=== PATIENT | female | born 1940 | race Caucasian/White ===

== ENCOUNTER 2022-11-20 08:08 | Observation (INO) ==
--- NOTE | 2022-10-09 14:24 | PAT Medication Instructions ---
Medication Instructions Date of Service October 09, 2022 Home Medications Medication Instructions Recorded aspirin 81 mg chewable tablet 81 mg PO DAILY #30 tabs 09/21/21 nitroglycerin 0.4 mg sublingual 0.4 mg sublingual Q5M PRN chest 09/21/21 tablet pain #20 tabs amlodipine 5 mg tablet 5 mg PO DAILY #30 tabs 12/13/21 isosorbide mononitrate 120 mg 120 mg PO DAILY #90 tabs 07/17/22 tablet,extended release 24 hr rosuvastatin 20 mg tablet 20 mg PO HS #90 tabs 09/11/22 Medication List: famotidine 40 mg tablet 40 mg PO BID aspirin 81 mg chewable tablet 81 mg PO DAILY nitroglycerin 0.4 mg sublingual tablet 0.4 mg sublingual Q5M PRN chest pain lorazepam 0.5 mg tablet 0.5 mg PO .COMPLEX PRN Anxiety furosemide 20 mg tablet (Lasix) 60 mg PO DAILY losartan 100 mg tablet 50 mg PO DAILY amlodipine 5 mg tablet 5 mg PO DAILY isosorbide mononitrate 120 mg tablet,extended release 24 hr 120 mg PO DAILY rosuvastatin 20 mg tablet 20 mg PO HS hydroxyzine HCl 25 mg tablet 30 mg PO HS PRN ANXIETY MEDICATION INSTRUCTIONS: Continue as directed nitroglycerin 0.4 mg sublingual tablet 0.4 mg sublingual Q5M PRN chest pain (p nicholas let anesthesia know if taken within 48hours prior to surgery) ASK your prescriber and surgeon aspirin 81 mg chewable tablet 81 mg PO DAILY DO NOT take the morning of surgery furosemide 20 mg tablet (Lasix) 60 mg PO DAILY losartan 100 mg tablet 50 mg PO DAILY Take morning of surgery With a small sip of water, OTHERWISE NOTHING TO EAT OR DRINK AFTER MIDNIGHT: lorazepam 0.5 mg tablet 0.5 mg PO .COMPLEX PRN Anxiety (if needed) famotidine 40 mg tablet 40 mg PO BID amlodipine 5 mg tablet 5 mg PO DAILY isosorbide mononitrate 120 mg tablet,extended release 24 hr 120 mg PO DAILY Take evening before surgery lorazepam 0.5 mg tablet 0.5 mg PO .COMPLEX PRN Anxiety (if needed) famotidine 40 mg tablet 40 mg PO BID rosuvastatin 20 mg tablet 20 mg PO HS hydroxyzine HCl 25 mg tablet 30 mg PO HS PRN ANXIETY (if needed) Other Notes If you have any questions please call us at [phone] or [phone] or [phone] or [phone]
--- NOTE | 2022-10-11 10:34 | History & Physical Report ---
Date of Service October 11, 2022 date of surgery: 10/31/22 procedure: Right Total Knee Arthroplasty Surgeon: Misha Theodore Assessment & Plan (1) Arthritis of right knee: Plan: Risk and benefits of the procedure were discussed, she is elected to proceed to right total knee replacement. Plan to be overnight stay with discharge home on aspirin 81 mg twice a day for 1 month postop DVT prophylaxis. She will need cardiac clearance prior to her upcoming surgery The risks and benefits have been discussed including, but not limited to, risk of infection, nerve injury, stiffness, loss of motion, failure to improve, etc. Reasonable outcomes and options of treatment were discussed. An explanation of appropriate alternatives to the procedure that may be advantageous were discussed and their risks and benefits, as well as the risks and benefits of not proceeding with treatment. I offered to answer any additional inquiries concerning the treatment involved. All the patient's questions were answered. The patient is agreeable, understanding of the treatment plan and alternatives, and wishes to proceed with the treatment plan. History of Present Illness Chief Complaint: Right knee pain Primary Care Provider: Wilbert Price Kiki Evans is a 81-year-old female who presented for preop evaluation prior to her upcoming right total knee replacement. She has longstanding history of right knee pain for several years denies any specific injuries or trauma. She was seen evaluated by Dr. Theodore underwent previous viscosupplementation as well as corticosteroid injection without any relief. After discussing further care she has elected to proceed with a right total knee replacement Allergies Allergy/AdvReac Type Severity Reaction Status Date / Time No Known Allergies Allergy Verified 10/09/22 13:16 Home Medications Medication Instructions Recorded Confirmed Type famotidine 40 mg tablet 40 mg PO BID 11/19/20 10/09/22 History aspirin 81 mg chewable tablet 81 mg PO DAILY #30 tabs 09/21/21 10/09/22 Rx nitroglycerin 0.4 mg sublingual 0.4 mg sublingual Q5M PRN chest 09/21/21 10/09/22 Rx tablet pain #20 tabs lorazepam 0.5 mg tablet 0.5 mg PO .COMPLEX PRN Anxiety 10/13/21 10/09/22 History furosemide 20 mg tablet (Lasix) 60 mg PO DAILY 11/16/21 10/09/22 History losartan 100 mg tablet 50 mg PO DAILY 11/16/21 10/09/22 History amlodipine 5 mg tablet 5 mg PO DAILY #30 tabs 12/13/21 10/09/22 Rx isosorbide mononitrate 120 mg 120 mg PO DAILY #90 tabs 07/17/22 10/09/22 Rx tablet,extended release 24 hr rosuvastatin 20 mg tablet 20 mg PO HS #90 tabs 09/11/22 10/09/22 Rx hydroxyzine HCl 25 mg tablet 30 mg PO HS PRN ANXIETY 10/09/22 10/09/22 History Past Med/Surg History Medical History Anxiety Aortic stenosis CAD (coronary artery disease) follows w/ Dr Theodore last visit 05/2022 Chronic heart failure with preserved ejection fraction Dyspnea on exertion GERD (gastroesophageal reflux disease) Hyperlipidemia Hypertension Surgical History History of cholecystectomy Hx of cardiac catheterization 09/2021 -[facility], no stents Hx of section Family History Other Family history non-contributory Social History Smoking Status: Never smoker Second Hand Exposure: No; Do You Dip or Chew Tobacco: No; Tobacco Cessation Education Requested by Patient: No Hx Alcohol Use: No Hx Substance Use: No Preferred Language: Swedish Communication Ability: Effective Kiln Hand Required: No Beliefs That Will Affect Care: None marital status: Current Living Situation: Spouse and Family Other Information That Helps Us Care for You: No Feels Safe at Home: Yes Safety Concerns: Feels Safe At This Time Assistive Devices: Denture - Upper, Glasses, Hearing Aid - Bilateral and Walker Review of Systems Review of Systems: All systems reviewed & are unremarkable except as noted in HPI & below Constitutional: no fever, no chills and no sweats Respiratory: no cough and no dyspnea Cardiovascular: no chest pain, no dyspnea and no orthopnea Gastrointestinal: no abdominal pain, no nausea and no vomiting Musculoskeletal: as per Subjective / HPI Physical Exam Physical Exam: HT: 5ft 2in WT: 79.38kg Constitutional: WD/WN, vitals as above no acute distress Respiratory: normal respiratory effort, lungs clear to auscultation no respiratory distress, no labored breathing and does not use accessory muscles Cardiovascular: RRR, no murmur, no edema Gastrointestinal (Abdomen): normal bowel sounds, soft, nontender, no hepatosplenomegaly Musculoskeletal: Knee: + knee abnormal to inspection (RIGHT KNEE: ), + effusion (+1 effusion), + limited ROM of knee (ROM 0/3/110), + knee ROM with crepitation, + joint line tenderness (medial joint line) and + Annmarie's sign positive; no deformity, no skin erythema, no ecchymosis, no valgus laxity, no varus laxity, anterior drawer test negative, Rocco's sign negative and pivot shift test negative Results & Data Results & Data Diagnostic Findings Right Knee X-ray: Right knee series showing advanced degenerative changes to the right knee, narrowing of the medial compartment and patello-femoral joint with patellar spurring noted, findings showing joint space narrowing of the medial compartment and patello-femoral joint, osteophyte formation and subchondral sclerosis noted. overall varus alignment. no acute bony pathology noted.
--- NOTE | 2022-10-18 08:40 | Anesthesiology Consultation ---
Date of Service October 18, 2022 Assessment & Plan (1) Encounter for pre-operative examination: - COVID screening: Per assessment on 10/18: No known COVID-19 positive contacts or current COVID-19 related symptoms. Travel screen negative. At surgeon discretion if preop Covid testing being done. - Outpatient joint assessment: Pt currently scheduled for inpatient pathway. If surgeon requests review for outpatient joint pathway, patient is not recommended candidate for outpatient joint program from anesthesia standpoint. - Patient acceptable risk for surgery pending surgeon-ordered cardiology preop evaluation ([facility] cardiology, appt 10/24). Chart Review Chart Review: Patient seen in Pre Admission Testing Teaching & Discussion Pre-Anesthesia Teaching/Discussion Notes: Instructed NPO after midnight before surgery,except medications with 15 cc of water. Medication instructions provided according to the PAT guidelines. History Surgery Operation Date: 10/31/22 07:55 Proposed Procedures p Right Total Knee Arthroplasty - Misha Theodore DO Height/Weight Height: 5 ft 2 in Weight: 81 kg Allergies Allergy/AdvReac Type Severity Reaction Status Date / Time No Known Allergies Allergy Verified 10/09/22 13:16 Medications Home Medications Medication Instructions Recorded Confirmed Last Taken famotidine 40 mg tablet 40 mg PO BID 11/19/20 10/09/22 10/04/21 aspirin 81 mg chewable tablet 81 mg PO DAILY #30 tabs 09/21/21 10/09/22 10/05/21 nitroglycerin 0.4 mg sublingual 0.4 mg sublingual Q5M PRN chest 09/21/21 10/09/22 Unknown tablet pain #20 tabs lorazepam 0.5 mg tablet 0.5 mg PO .COMPLEX PRN Anxiety 10/13/21 10/09/22 Unknown furosemide 20 mg tablet (Lasix) 60 mg PO DAILY 11/16/21 10/09/22 Unknown losartan 100 mg tablet 50 mg PO DAILY 11/16/21 10/09/22 Unknown amlodipine 5 mg tablet 5 mg PO DAILY #30 tabs 12/13/21 10/09/22 Unknown isosorbide mononitrate 120 mg 120 mg PO DAILY #90 tabs 07/17/22 10/09/22 Unknown tablet,extended release 24 hr rosuvastatin 20 mg tablet 20 mg PO HS #90 tabs 09/11/22 10/09/22 Unknown hydroxyzine HCl 25 mg tablet 30 mg PO HS PRN ANXIETY 10/09/22 10/09/22 Unknown Past Medical History Medical History Anxiety Aortic stenosis Echo 09/2022: Mild aortic stenosis (ANNABEL 1.9-2.0cm2, MG 15.3mmhg) CAD (coronary artery disease) Follows with [facility] Chronic heart failure with preserved ejection fraction GERD (gastroesophageal reflux disease) Hyperlipidemia Hypertension Obesity Pulmonary hypertension Echo 09/2022: "Mild" pulmonary HTN. RVSP 41mmhg. Exercise / Class Metabolic Activity III < 4 Walking/Shop/Light housework (uses walker) Past Family History Family History Other Family history non-contributory Past Surgical History Surgical History History of cholecystectomy Hx of cardiac catheterization 09/2021- [facility], no stents Hx of section Past Anesthesia History No Hx of Anesthesia Complications and No Family Hx of Anesthesia Complications History of PONV No Hx of PONV and No Hx of Motion Sickness Social History Smoking Status: Never smoker Do You Dip or Chew Tobacco: No Hx Alcohol Use: No Hx Substance Use: No substance use type: does not use Review of Systems Patient denies chest pain, shortness of breath, fever, chills, cough, wheezing, palpitations. Physical Exam Vital Signs VITALS BP 137/72 P 69 TEMP 98.1 SP02 95%RA RESP 16 PHYSICAL Full cervical extension range of motion. Full TMJ range of motion. TMD 3 finger breaths Mallampati Score 3 Dentition: upper partial, poor dentition Lungs: clear throughout to auscultation Cardiac: regular rate and rhythm, no murmurs noted Spine: normal Carotid arteries: negative bruit Extremities: no LE edema Lab Results Anesthesia Preop Results Results Anesthesia Widget: PT 10.9 Seconds (9.0-12.0) 10/18/22 PTT 23.3 Seconds (21.0-31.0) 10/18/22 INR 1.0 (0.9-1.1) 10/18/22 HA1c 6.1 % (4.5-5.6) H 10/18/22 Urine Color Yellow 10/18/22 Urine Appearance Clear (Clear) 10/18/22 Urine pH 6.5 (4.5-7.5) 10/18/22 Urine Specific Bolton 1.006 (1.000-1.030) 10/18/22 Urine Protein Negative (Negative) 10/18/22 Urine Glucose (UA) Negative (Negative) 10/18/22 Urine Ketones Negative (Negative) 10/18/22 Urine Blood Negative (Negative) 10/18/22 Urine Nitrite Negative (Negative) 10/18/22 Urine Bilirubin Negative (Negative) 10/18/22 Urine Urobilinogen Negative (Negative) 10/18/22 Urine Leukocyte Esterase Trace (Negative) H 10/18/22 Urine WBC (Auto) 0 /hpf (0-5) 10/18/22 Urine RBC (Auto) 0-4 /hpf (0-4) 10/18/22 Urine Hyaline Casts (Auto) 0 /lpf (0-5) 10/18/22 Urine Epithelial Cells (Auto) 0-5 /lpf (0-5) 10/18/22 Urine Bacteria (Auto) Negative (Negative) 10/18/22 Blood Type A Positive 10/18/22 Antibody Screen NEGATIVE 10/18/22 Testing Laboratory Results 10/05/22 WBC 4.9 H/H 12.0/35.5 PLATELETS 233 SODIUM 134 POTASSIUM 4.0 CHLORIDE 97 CO2 27 BUN 33 CREATININE 1.1 GLUCOSE 112 TSH 1.64 Electrocardiogram Date: 10/18/22 NSR at 65bpm. LAD. Chest X-Ray Date: 10/18/22 FINDINGS: PA and lateral chest radiographs are compared to study dated 01/18/2021. The heart is enlarged noting atherosclerotic calcification of the thoracic aorta. The pulmonary vasculature is noncongested. Calcified mediastinal lymph nodes are similar to previous. Chronic interstitial thickening is unchanged. There is mild bibasilar scarring/atelectasis. The lungs and pleural spaces are otherwise clear. There is no pneumothorax. The skeletal structures are osteopenic. The bony thorax appears intact. Cholecystectomy clips are noted in the right upper quadrant. IMPRESSION: Cardiomegaly with no active disease in the chest. Echocardiogram Date: 10/05/22 EF 60-65%. No RWMA. Mild cLVH. Moderate LAD. Mild RAD. Mild aortic stenosis (ANNABEL 1.9-2.0cm2, MG 15.3mmhg). Moderate mitral annular calcification. Mild pulmonary HTN. RVSP 41mmhg. No significant change compared to prior to study 07/24/18 per report. Stress Test Date: 09/06/21 1. Scintigraphic evidence of stress-induced myocardial ischemia involving the anterior and anterolateral hutson. 2. No exercise-induced chest pain. 3. No EKG changes. 4. Normal left ventricular systolic function without wall motion abnormality. Left ventricular ejection fraction is 68%. *Subsequent 09/2021 cardiac cath performed* Cardiac Catheterization Date: 10/05/21 Coronary angiography: 1. Left main: Distal left main 20%. 2. Left anterior descending: Proximal LAD luminal irregularities. Mid LAD 30%. Small to medium caliber D1 with proximal 60 to 70% stenosis and LUZ MARIA-3 flow. 3. Circumflex: Large caliber circumflex and OM1. Mid to distal circumflex continues in the AV groove as a small to medium caliber vessel. Ostial circumflex 10 to 20%. Large OM1 proximal 20% and mid 20 to 30% stenosis. Otherwise luminal irregularities. 4. Right coronary artery: RCA is large and dominant. Proximal RCA 20%. Mid RCA diffuse 10 to 20%. Proximal PDA 50%. PL branches without significant CAD. Left heart authorization: 1. Left ventriculography was not performed. 2. Mild aortic stenosis. There was a 15-20 mmHg peak to peak gradient across the aortic valve noted on catheter pullback. 3. Mildly elevated LVEDP; 17 mmHg. Impression: Moderate to severe CAD involving small to medium caliber D1. Otherwise mild and moderate nonobstructive CAD. Mild aortic stenosis. Mildly elevated LVEDP. Hypertension. Plan: Given poorly controlled blood pressure and small to medium caliber branch vessel CAD as the most severe CAD, recommend adjusting medical therapy. If continues to have symptoms that could be attributed to ischemic heart disease despite medical therapy, could review images with interventional cardiology to discuss possible options. She has already noted some benefit with nitrate therapy. Risk factor modification. Continue diuretic. COVID-19 Risk Screen Screening Information COVID-19 Screen Date: 10/18/22 Exposure 21 Days Family/Household +COVID Last 21 Days: No Exposure 10 Days Any COVID Exposure Last 10 Days: No Symptoms Last 10 Days Experienced COVID Sx Last 10 Days: No + COVID 0-90 Days COVID + in Last 0-90 Days: No
--- NOTE | 2022-11-16 09:55 | History & Physical Report ---
Date of Service November 16, 2022 date of surgery: 11/20/22 Procedure: Right Total Knee Arthroplasty Surgeon: Misha Theodore Assessment & Plan (1) Arthritis of right knee: Plan: Risk and benefits of the procedure were discussed, she is elected to proceed to right total knee replacement. Plan to be overnight stay with discharge home on aspirin 81 mg twice a day for 1 month postop DVT prophylaxis. She will need cardiac clearance prior to her upcoming surgery The risks and benefits have been discussed including, but not limited to, risk of infection, nerve injury, stiffness, loss of motion, failure to improve, etc. Reasonable outcomes and options of treatment were discussed. An explanation of appropriate alternatives to the procedure that may be advantageous were discussed and their risks and benefits, as well as the risks and benefits of not proceeding with treatment. I offered to answer any additional inquiries concerning the treatment involved. All the patient's questions were answered. The patient is agreeable, understanding of the treatment plan and alternatives, and wishes to proceed with the treatment plan. History of Present Illness Chief Complaint: right knee pain Primary Care Provider: Wilbert Price Kiki Evans is a 81-year-old female who presented for preop evaluation prior to her upcoming right total knee replacement. She has longstanding history of right knee pain for several years denies any specific injuries or trauma. She was seen evaluated by Dr. Theodore underwent previous viscosupplementation as well as corticosteroid injection without any relief. After discussing further care she has elected to proceed with a right total knee replacement Allergies Allergy/AdvReac Type Severity Reaction Status Date / Time No Known Allergies Allergy Verified 10/24/22 10:23 Home Medications Medication Instructions Recorded Confirmed Type famotidine 40 mg tablet 40 mg PO BID 11/19/20 10/24/22 History aspirin 81 mg chewable tablet 81 mg PO DAILY #30 tabs 09/21/21 10/24/22 Rx nitroglycerin 0.4 mg sublingual 0.4 mg sublingual Q5M PRN chest 09/21/21 10/24/22 Rx tablet pain #20 tabs lorazepam 0.5 mg tablet 0.5 mg PO .COMPLEX PRN Anxiety 10/13/21 10/24/22 History furosemide 20 mg tablet (Lasix) 60 mg PO DAILY 11/16/21 10/24/22 History amlodipine 5 mg tablet 5 mg PO DAILY #30 tabs 12/13/21 10/24/22 Rx isosorbide mononitrate 120 mg 120 mg PO DAILY #90 tabs 07/17/22 10/24/22 Rx tablet,extended release 24 hr rosuvastatin 20 mg tablet 20 mg PO HS #90 tabs 09/11/22 10/24/22 Rx omeprazole 40 mg capsule,delayed 40 mg PO DAILY 10/24/22 10/24/22 History release Past Med/Surg History Medical History Anxiety Aortic stenosis Echo 09/2022: Mild aortic stenosis (ANNABEL 1.9-2.0cm2, MG 15.3mmhg) CAD (coronary artery disease) Follows with [facility] Chronic heart failure with preserved ejection fraction GERD (gastroesophageal reflux disease) Hyperlipidemia Hypertension Obesity Pulmonary hypertension Echo 09/2022: "Mild" pulmonary HTN. RVSP 41mmhg. 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: No Beliefs That Will Affect Care: None marital status: Current Living Situation: Spouse and Family Other Information That Helps Us Care for You: No Feels Safe at Home: Yes Safety Concerns: Feels Safe At This Time Assistive Devices: Denture - Upper, Glasses, Hearing Aid - Bilateral and Walker Review of Systems Constitutional: no fever, no chills and no sweats Respiratory: no cough and no dyspnea Cardiovascular: no chest pain, no dyspnea and no orthopnea Gastrointestinal: no abdominal pain, no nausea and no vomiting Musculoskeletal: as per Subjective / HPI Physical Exam Physical Exam: HT: 5ft 2in WT: 79.38kg Constitutional: WD/WN, vitals as above no acute distress Respiratory: normal respiratory effort, lungs clear to auscultation no respiratory distress, no labored breathing and does not use accessory muscles Cardiovascular: RRR, no murmur, no edema Gastrointestinal (Abdomen): normal bowel sounds, soft, nontender, no hepatosplenomegaly Musculoskeletal: Knee: + knee abnormal to inspection (RIGHT KNEE: ), + effusion (+1 effusion), + limited ROM of knee (ROM 0/3/110), + knee ROM with crepitation, + joint line tenderness (medial joint line) and + Annmarie's sign positive; no deformity, no skin erythema, no ecchymosis, no valgus laxity, no varus laxity, anterior drawer test negative, Rocco's sign negative and pivot shift test negative Results & Data Results & Data Diagnostic Findings Right Knee X-ray: Right knee series showing advanced degenerative changes to the right knee, narrowing of the medial compartment and patello-femoral joint with patellar spurring noted, findings showing joint space narrowing of the medial compartment and patello-femoral joint, osteophyte formation and subchondral sclerosis noted. overall varus alignment. no acute bony pathology noted.
[~2022-11-20 08:08] MED LIST: ACETAMINOPHEN 500 MG TAB PO SCH; ATROPINE SULFATE 0.1 MG/ML 10ML SYR IV PRN; BUPIVACAINE 0.25% PF 30 ML VIAL ONE; BUPIVACAINE 0.5 % 5 MG/1 ML PF 10ML VIAL ONE; CeleBREX 200 MG CAP PO SCH; FAMOTIDINE 20 MG TAB PO SCH; GABAPENTIN 300 MG CAP PO SCH; LR 500ML BOLUS, THEN 15ML/HR IV SCH; LR 60ML/HR IV SCH; METOCLOPRAMIDE HCL 10 MG TABLET PO SCH; ONDANSETRON INJ 2 MG/ML 2 ML VIAL IV PRN; ROPIVACAINE 0.5% HCL/PF 150 MG, BUPIVACAINE 0.75% MPF 20 ML, EPINEPHrine 30MG/30ML (OR ... INSTIL SCH; TRANEXAMIC ACID 1,000 MG **IV Intra-op IV SCH; TRANEXAMIC ACID 1,000 MG **IV Pre-op IV SCH; ceFAZolin 2000MG 2,000 MG/15 ML SYR IV SCH; dexAMETHasone 4 MG TAB PO SCH; ePHEDrine sulfate 50 MG/ML AMP IV PRN; fentaNYL citrate PF 100 MCG/2 ML VIAL IV PRN
--- NOTE | 2022-11-20 08:49 | History & Physical Bridge Note ---
Date of Service November 20, 2022 History & Physical Bridge Note I have examined the patient, reviewed the History & Physical and in the interval since the performance of the History & Physical I have noted the following changes of clinical significance: no changes noted
[2022-11-20] MEDS ORDERED: TRANEXAMIC ACID / 0.7% NACL 1,000 MG/100 ML BAG IV ONE ×2 (08:59)
[2022-11-20] MEDS ORDERED: PROPOFOL IV EMULSION 10 MG/ML 20 ML VIAL IV ONE (09:04)
[2022-11-20] MEDS ORDERED: fentaNYL citrate PF 100 MCG/2 ML VIAL ONE ×2 (09:04→11:17)
[2022-11-20] MEDS ORDERED: LIDOCAINE 2% 2 ML VIAL/AMP(20MG/ML) INFIL ONE (09:04)
[2022-11-20] MEDS ORDERED: ORTHO JOINT ANESTHETIC ONE (10:21)
[2022-11-20] MEDS ORDERED: LABETALOL HCL IV 5 MG/ML 20ML IV PRN (11:25)
[2022-11-20] MEDS ORDERED: ePHEDrine sulfate 50 MG/ML AMP ONE (11:34)
[2022-11-20] MEDS ORDERED: WATER, STERILE FOR INJ 10 ML VIAL ONE (11:34)
[2022-11-20] MEDS ORDERED: LABETALOL HCL IV 5 MG/ML 20ML IV ONE (11:36)
--- NOTE | 2022-11-20 12:16 | Operative Report ---
Post Operative Report Pre & Post Diagnosis Operation Date: 11/20/22 10:10 Pre-Op Diagnosis: Arthritis of right knee Post-Op Diagnosis: Arthritis of right knee I identified the patient and participated in the time-out.: Yes Procedure Operation Date: 11/20/22 10:10 Actual Procedures p Right Total Knee ArthroplastyUtilizing Gu[employer]ro & Nephew journey 2 and en bloc total knee arthroplasty size 4 femur 3 tibia 9 polytwenty 32 patella - Misha Theodore DO Surgeon Misha Theodore DO Print Controller Los LOYA Estimated Blood Loss 5 Findings Consistent with Post-Op Diagnosis Patient presents with severe end-stage tricompartmental DJD eburnated [id number] marginal osteophytes subchondral sclerosis and marginal line and cystic osteophytes Specimens Bone and cartilage Drains Medium bore Hemovac Anesthesia Type MAC Spinal Regional Complications none Disposition Accompanied Patient To Recovery: No Disposition: Recovery Room Indications Patient presents for right total knee arthroplasty after failed attempts at conservative management putting physical therapy anti-inflammatories relative rest activity modification corticosteroid injection and viscosupplementation Description of Procedure After proper prepping and draping of the Right lower extremity anterior midline incision was made over the region of the extensor extensor mechanism after meticulous hemostasis was obtained and maintained in subcutaneous tissues a medial parapatellar incision was made The patella was subluxed lateralward the medial lateral gutter were cleaned from any hypertrophic synovitis and scar tissue of the distal femoral block was placed and the distal femoral osteotomy cut was made subsequently the chamfers anterior and posterior osteotomy cuts were made utilizing the 4-in-1 block the tibia was subsequently subluxed anteriorward medial and ateral meniscal remnants were excised in their entirety remnants of the anterior and posterior cruciate ligaments were excised in their entirety excellent exposure of the proximal tibia was obtained the tibial osteotomy guide was placed on the proximal tibial osteotomy cut was made once again the knee was irrigated with copious amounts of sterile saline solution the patella was subsequently everted lateralward thickened scar tissue around the patella was removed the patella was subsequently cut utilizing a freehand technique and was drilled prepared for final preparation and placement of patella socially flexion-extension gaps were checked and the equal and symmetric trials were placed to the appropriate femoral and tibial trials with poly-spacer being placed for equal flexion and extension gaps and full range of motion including extension to 0 and flexion to 140 the trial components after having been taken to recovery range of motion was subsequently removed meticulous hemostasis was obtained and maintained subsequently a knee block injection of joint cocktail including ropivacaine 0.5% 150 mg. Bupivacaine 0.5% epinephrine 1-200,030 mL's toradol 30 mg dexamethasone 4 mg ketamine 10 mg clonidine 100 micrograms normal saline solution 30 mg was infiltrated into the soft tissues of the posterior knee medial lateral gutters and periosteal synovium special attention was paid to protect neurovascular structures at all times subsequently trial components having been removed the knee was irrigated with sterile saline solution. debris was removed the proximal tibia was subsequently prepared and was made ready for the placement of the tibial component tibial component was also cemented and tamped into position the femoral component was subsequently placed and cemented in the position the patellar component was subsequently cemented in position because hemostasis once again obtained and maintained wound having been thoroughly irrigated with debridement and debridement lavage was performed as well as a medial parapatellar incision closed with #1 Vicryl in interrupted fashion subcutaneous was closed with #2 Vicryl skin was closed with skin clips. PA-C was necessary for prepping and drapping as well as wound closure of deep fascia Sub cutaneous tissue and skin and was necessary for the case. A sterile compressive dressing was placed patient was taken to recovery in stable condition of report dictated by Arben I attest to the content of the Intraoperative Record and any orders documented therein. Any exceptions are noted below.Due to the complex nature of the procedure, the entire surgery was performed with the operational assistance of Los LYONS. The pediatric assistant, under direct supervision, was involved in the actual performance of all aspects of the surgical procedure including hemostasis, tissue retraction and incision, instrument management, patient positioning, and wound closure. I attest to the content of the Intraoperative Record and any orders documented therein. Any exceptions are noted below.
[2022-11-20] MEDS ORDERED: METOCLOPRAMIDE HCL INJ 5 MG/ML 2 ML VIAL IV PRN (14:15)
[2022-11-20] MEDS ORDERED: NITROGLYCERIN SL 0.4 MG/TAB TAB SL PRN (14:15)
[2022-11-20] MEDS ORDERED: LORazepam 0.5 MG TAB PO PRN (14:15)
[2022-11-20] MEDS ORDERED: diphenhydrAMINE Capsule 25 MG CAP PO PRN (14:15)
[2022-11-20] MEDS ORDERED: oxyCODONE HCL IR 5 MG TAB (IMMEDIATE RELEASE) PO PRN (14:15)
[2022-11-20] MEDS ORDERED: HYDROmorphone INJ 1 MG/ML SYRINGE IV PRN (14:15)
[2022-11-20] MEDS ORDERED: ONDANSETRON INJ 2 MG/ML 2 ML VIAL IV PRN (14:15)
[2022-11-20] MEDS ORDERED: MAGNESIUM HYDROXIDE SUSP 30 ML UDC PO PRN (14:15)
[2022-11-20] MEDS ORDERED: bisacodyL 10 MG SUPP PR PRN (14:15)
[2022-11-20] MEDS ORDERED: NALOXONE HCL 0.4 MG/1 ML VIAL/CARP IV PRN (14:15)
[2022-11-20] MEDS ORDERED: SODIUM CHLORIDE 0.9% 1000ML 1,000 ML IV SCH (14:15)
[2022-11-20] MEDS: KETOROLAC TROMETHAMINE 15 MG/ML VIAL IV SCH ×2 (14:56→19:22)
[2022-11-20] MEDS: ACETAMINOPHEN 500 MG TAB PO SCH ×2 (14:56→21:27)
--- NOTE | 2022-11-20 14:58 | Anesthesiology Progress Note ---
Date of Service November 20, 2022 Anesthesia Post Procedure Vital Signs Vital Signs: Temp Pulse Pulse Resp BP BP Pulse Ox 11/20/22 14:53 70 16 155/79 H 97 11/20/22 13:45 11/20/22 13:45 36.6 C 67 16 136/76 99 11/20/22 13:25 64 12 145/68 H 97 11/20/22 13:15 36.3 C L 65 12 148/71 H 96 11/20/22 13:05 67 12 143/72 H 99 11/20/22 12:55 64 12 144/69 H 99 11/20/22 12:48 36.1 C L 68 14 160/82 H 96 11/20/22 09:30 75 20 175/98 H 212/93 H 94 11/20/22 08:45 36.9 C 74 20 201/102 H 212/93 H 96 O2 Del Method O2 Flow Rate 11/20/22 14:53 Nasal Cannula 2 11/20/22 13:45 Nasal Cannula 2 11/20/22 13:45 Nasal Cannula 2 11/20/22 13:25 Nasal Cannula 2 11/20/22 13:15 Nasal Cannula 2 11/20/22 13:05 Oxymask 4 11/20/22 12:55 Oxymask 6 11/20/22 12:48 Oxymask 6 11/20/22 09:30 Room Air 11/20/22 08:45 Room Air Transfer of Care Handoff Completed per policy Notes Mental Status: alert / awake / arousable and participated in evaluation Patient Amnestic to Procedure: Yes Nausea / Vomiting: adequately controlled Pain: adequately controlled Airway Patency, RR, SpO2: stable & adequate BP & HR: stable & adequate Hydration State: stable & adequate Anesthetic Complications: no major complications apparent and Pt Satisfied with anesthetic care
--- NOTE | 2022-11-20 15:14 | XRay Report ---
XR knee RT 1 or 2V routine CLINICAL HISTORY: Surgical Post Op TECHNIQUE: 2 views of the right knee were obtained. Comparison: None available at the time of this dictation. FINDINGS: Patient is status post total knee arthroplasty with expected postsurgical changes including soft tiss ue swelling and subcutaneous emphysema. No periarticular lucency or hardware fracture is seen. IMPRESSION: Expected postoperative appearance status post placement of total knee arthroplasty. ACT 112: Negative or not required by law. Electronically signed by: Lamberto Jimenez M.D. 11/20/2022 3:13 PM
--- NOTE | 2022-11-20 15:50 | Hospitalist Consultation ---
Date of Consultation November 20, 2022 Assessment & Plan (1) Status post right knee replacement: -Pain management, perioperative abx, and DVT PPX per the primary team -Stopped IV fluids as the patient is hemodynamically stable, able to eat/drink, and has a hx of CHF and -Patient is now stable on RA -Agree with am CBC and BMP, we will follow -Thank you for allowing us to participate in the care of this patient, please reach out with any questions or concerns -Medicine will continue to follow (2) Hypertension: -Stable -Agree with restarting amlodipine tomorrow as long as BP and renal function are stable (3) Chronic heart failure with preserved ejection fraction: -Currently euvolemic -Patient states she took her am dose of 60 mg PO Lasix today -Would consider restarting tomorrow if stable -Stopped IV fluids to avoid volume overload (4) GERD (gastroesophageal reflux disease): -Continue BID famotidine -Will add daily PO pantoprazole as well (5) Atrial tachycardia: -Stable -Has not tolerated beta blockers in the past -Continue to monitor (6) CAD (coronary artery disease): -Stable and asymptomatic -Agree with restarting aspiring tonight Plan The patient was discussed with Dr. Astudillo at the time of the consult Supervising Physician Co-Signing Physician Notes I personally saw and examined the patient. I verified all pat points and agree with Sin Hatch PA-C with the following exceptions and/or additions: 82 year old female POD#0 right TKA. EBL 5ml. No acute concerns or questions from the patient O/E A&Ox3, HS RRR, ALEXSANDRA, Chest CTAB, Abdo SNT A/P No change to plan above. Agree with holding further fluids. Defer restarting Lasix to medical team tomorrow. History of Present Illness Reason for Consultation: Post op medical management Requesting Physician: Misha Theodore DO Attending Physician: Dr. Stanley Astudillo History of Present Illness Cristina is an 82 year old female with a PMH significant for non-obstructive CAD, HFpEF, Aortic stenosis, HTN, atrial tachycardia, and GERD who presented to the [facility] OR on 11/20 for Right Total Knee Arthroplasty with Dr. Theodore. Per review of the patient's vitals, she has been stable on 2L NC since arriving to the med/surge floor and otherwise stable. Per the operative report, EBL was listed as 5 cc, anesthesia was listed as "MAC, Spinal, Regional", and there were no reported intraoperative complications. At the time of the exam the patient was resting in bed in no acute distress. I turned her O2 off at the beginning of my exam and she remained stable on RA throughout. She states that she is feeling well post op, she currently has no complaints. She denies fever, chills, chest pain, cough, SOB, abd pain, nausea, vomiting, diarrhea, dysuria, hematuria, and recent falls/trauma. She did take her am amlodipine, lasix, and Imdur today. Please refer to Dr. Astudillo's attestation for any changes to the treatment plan Allergies Allergy/AdvReac Type Severity Reaction Status Date / Time No Known Allergies Allergy Verified 11/20/22 08:40 Home Medications Medication Instructions Recorded Confirmed Type famotidine 40 mg tablet 40 mg PO BID 11/19/20 11/20/22 History aspirin 81 mg chewable tablet 81 mg PO DAILY #30 tabs 09/21/21 11/20/22 Rx nitroglycerin 0.4 mg sublingual 0.4 mg sublingual Q5M PRN chest 09/21/21 11/20/22 Rx tablet pain #20 tabs lorazepam 0.5 mg tablet 0.5 mg PO .COMPLEX PRN Anxiety 10/13/21 11/20/22 History furosemide 20 mg tablet (Lasix) 60 mg PO DAILY 11/16/21 11/20/22 History amlodipine 5 mg tablet 5 mg PO DAILY #30 tabs 12/13/21 11/20/22 Rx isosorbide mononitrate 120 mg 120 mg PO DAILY #90 tabs 07/17/22 11/20/22 Rx tablet,extended release 24 hr rosuvastatin 20 mg tablet 20 mg PO HS #90 tabs 09/11/22 11/20/22 Rx omeprazole 40 mg capsule,delayed 40 mg PO DAILY 10/24/22 11/20/22 History release Patient History Medical History Anxiety Aortic stenosis Echo 09/2022: Mild aortic stenosis (ANNABEL 1.9-2.0cm2, MG 15.3mmhg) CAD (coronary artery disease) Follows with [facility] Chronic heart failure with preserved ejection fraction GERD (gastroesophageal reflux disease) Hyperlipidemia Hypertension Obesity Pulmonary hypertension Echo 09/2022: "Mild" pulmonary HTN. RVSP 41mmhg. Surgical History History of cholecystectomy Hx of cardiac catheterization 09/2021- [facility], no stents Hx of section Family History Other Family history non-contributory Social History Smoking Status: Never smoker Second Hand Exposure: No; Do You Dip or Chew Tobacco: No; Tobacco Cessation Education Requested by Patient: No Hx Alcohol Use: No Hx Substance Use: No Preferred Language: Indonesian Communication Ability: Effective Prompt Care Rn Required: No Beliefs That Will Affect Care: None marital status: Current Living Situation: Spouse and Family Other Information That Helps Us Care for You: No Feels Safe at Home: Yes Safety Concerns: Feels Safe At This Time Assistive Devices: Denture - Upper, Glasses, Hearing Aid - Bilateral and Walker Physical Exam Physical Exam: Physical Exam: General: In no acute distress, stated age, well-nourished, good hygiene HEENT: Normocephalic, atraumatic, no scleral icterus, pupils around round, symmetrical, and reactive to light, moist mucus membranes, trachea midline, no thyromegaly Chest/Pulm: No respiratory distress, symmetrical chest expansion, expiratory wheezing noted in the BL lower lung benton but otherwise CTA Cardiac: RRR, 3/6 systolic murmur noted Abdomen: Negative for ascites and bruising, normoactive bowel sounds, soft, non-tender to palpation throughout Musculoskeletal: RLE currently wrapped, drain in placed, intact sensation and motor function in the BL feet and toes Extremities: Cap refill < 3 sec in the BL toes with warm LE's Skin: Warm, dry, no rashes , lesions, or scars noted Neuro: Alert and oriented to person, place, month, year, and president, no focal defects, no tremors noted Psych: No acute distress, calm and cooperative during the exam Results & Data Results & Data Vital Signs (Past 12 Hours) Vital Signs Temp Pulse Pulse Resp BP BP Pulse Ox 11/20/22 15:20 36.4 C L 67 18 135/84 100 11/20/22 14:53 70 16 155/79 H 97 11/20/22 13:45 11/20/22 13:45 36.6 C 67 16 136/76 99 11/20/22 13:25 64 12 145/68 H 97 11/20/22 13:15 36.3 C L 65 12 148/71 H 96 11/20/22 13:05 67 12 143/72 H 99 11/20/22 12:55 64 12 144/69 H 99 11/20/22 12:48 36.1 C L 68 14 160/82 H 96 11/20/22 09:30 75 20 175/98 H 212/93 H 94 11/20/22 08:45 36.9 C 74 20 201/102 H 212/93 H 96 O2 Del Method O2 Flow Rate 11/20/22 15:20 Nasal Cannula 2 11/20/22 14:53 Nasal Cannula 2 11/20/22 13:45 Nasal Cannula 2 11/20/22 13:45 Nasal Cannula 2 11/20/22 13:25 Nasal Cannula 2 11/20/22 13:15 Nasal Cannula 2 11/20/22 13:05 Oxymask 4 11/20/22 12:55 Oxymask 6 11/20/22 12:48 Oxymask 6 11/20/22 09:30 Room Air 11/20/22 08:45 Room Air Diagnostic Findings Knee X-Ray 11/20/22 12:03 XR knee RT 1 or 2V routine CLINICAL HISTORY: Surgical Post Op TECHNIQUE: 2 views of the right knee were obtained. Comparison: None available at the time of this dictation. FINDINGS: Patient is status post total knee arthroplasty with expected postsurgical changes including soft tissue swelling and subcutaneous emphysema. No periarticular lucency or hardware fracture is seen. IMPRESSION: Expected postoperative appearance status post placement of total knee arthroplasty. ACT 112: Negative or not required by law. Electronically signed by: Lamberto Jimenez M.D. 11/20/2022 3:13 PM PG Care Time/CCT Total # of Minutes Spent Total Time Spent with Patient: Total time spent is greater than 50% in coordination of care (as documented) at patient's floor/unit and/or counseling patient: C[place] [address] IN/OBS CONSULT LVL 3,45M Patient Type Established Medical Decision Making Moderate Complexity Diagnoses Status post right knee replacement Z96.651 Hypertension I10 Chronic heart failure with preserved ejection fraction I50.32 GERD (gastroesophageal reflux disease) K21.9 Atrial tachycardia I47.1 CAD (coronary artery disease) I25.10
[2022-11-20] MEDS: ceFAZolin 2000MG 2,000 MG/15 ML SYR IV SCH (17:45)
[2022-11-20] MEDS ORDERED: ROSUVASTATIN CALCIUM 20 MG TAB PO SCH (21:00)
[2022-11-20] MEDS ORDERED: SENNA 8.6 MG TAB PO SCH (21:00)
[2022-11-20] MEDS: FAMOTIDINE 40 MG TABLET PO SCH (21:26)
[2022-11-20] MEDS: DOCUSATE SODIUM 100 MG CAP PO SCH (21:26)
[2022-11-20] MEDS: ASPIRIN 81 MG ECTAB PO SCH (21:26)
[2022-11-21] MEDS: KETOROLAC TROMETHAMINE 15 MG/ML VIAL IV SCH ×2 (01:02→05:20)
[2022-11-21] MEDS: ceFAZolin 2000MG 2,000 MG/15 ML SYR IV SCH (01:02)
[2022-11-21] MEDS: ACETAMINOPHEN 500 MG TAB PO SCH (05:20)
--- NOTE | 2022-11-21 07:37 | Hospitalist Progress Note ---
Date of Service November 21, 2022 Assessment & Plan (1) Status post right knee replacement: Plan: POD#1 s/p Right Total Knee ArthroplastyUtilizing Guerrero & Nephew journey 2 and en bloc total knee arthroplasty size 4 femur 3 tibia 9 polytwenty 32 patella - Misha Theodore, DO EBL 5cc WB 11.5k, likely from steroids.Afebrile Hgb 11.4--> 10.7, acute blood loss from surgery as well as some dilution from IVF Pain control, bowel regimen per primary service PT/OT consulted DVT proph: ASA 81mg BID per primary Patient looking/feeling great, discussed w/ ortho and planning for discharge today. (2) Hypertension: Plan: BP stable 142/80 Continue amlodipine, daily (3) Chronic heart failure with preserved ejection fraction: Plan: Currently euvolemic , renal function stable Took 60mg lasix on 11/20 prior to surgery Renal function/BP stable and will resume her usual lasix (she can take at home if wanting to hold off for transport pending timing) (4) GERD (gastroesophageal reflux disease): Plan: Continue pepcid BID (5) Atrial tachycardia: Plan: -Stable -Has not tolerated beta blockers in the past -Continue to monitor (6) CAD (coronary artery disease): Plan: -Stable and asymptomatic , aspirin resumed and BID for DVT proph as above No CP/SOB reported Plan Hospitalist service will sign off on Mrs Mg at this time. Please call with any questions/concerns. Admission and Anticipated Discharge Date Admission Date: November 20, 2022 Supervising Physician Co-Signing Physician Notes The patient was not seen by me. The chart was reviewed. Case discussed with VINCENZO Alba. Agree with assessment and plan Subjective Eval this morning, getting ready to work with therapy. Pain controlled, no fever/chills, chest pain, shortness of breath. No issues to report, anticipating discharge later today. Review of Systems Review of Systems: All systems reviewed & are unremarkable except as noted in HPI & below Physical Exam Physical Exam: General: WD/WN female sitting up in chair, NAD, getting ready to work with therapy HEENT: head normocephalic, atraumatic, mmm, trachea midline Resp: CTA, no w/c/r, 96% on RA CV: RRR, 3/6 systolic murmur, s1/s2 appreciated, no significant edema, calves NONTENDER bilaterally GI: +BS, soft,slight distension, nontender : no ashraf MSK/Neuro: dressing to RLE c/d/i, compartments supple, NVI, toes mobile, calves nontender, cap refill wnl Psych; AOx3, cooperative with exam Results & Data Results & Data Vital Signs (Past 12 Hours) Vital Signs Temp Pulse Resp BP Pulse Ox O2 Del Method 11/21/22 06:00 36.6 C 62 18 142/80 H 96 Room Air 11/21/22 02:45 36.5 C 64 16 160/77 H 96 Room Air 11/20/22 21:31 36.5 C 67 18 146/81 H 97 Room Air Laboratory Results 11/21/22 11/21/22 Range/Units 06:51 06:51 WBC 11.59 H (4.8-10.8) K/ul RBC 3.20 L (4.20-5.40) M/uL Hgb 10.7 L (12.0-16.0) g/dl Hct 31.3 L (37.0-47.0) % MCV 97.8 (80.0-100.0) fL MCH 33.4 (25.0-34.0) pg MCHC 34.2 (32.0-36.0) g/dL RDW Std Deviation 50.1 H (36.4-46.3) fL RDW Coeff of Rui 14.2 (11.5-14.5) % Plt Count 202 (130-400) K/uL MPV 10.1 (9.4-12.4) fL Sodium 138 (136-145) mmol/L Potassium 4.1 (3.5-5.1) mmol/L Chloride 106 (98-107) mmol/L Carbon Dioxide 26 (21-32) mmol/L Anion Gap 6 (3-11) BUN 26 H (6-23) mg/dl Creatinine 1.07 (0.6-1.2) mg/dl Est Cr Clr Drug Dosing 40.3 ml/min Est GFR ( Amer) 56.4 ml/min Est GFR (Non-Af Amer) 48.6 ml/min BUN/Creatinine Ratio 24.3 H (10-20) Glucose 140 H (70-99(Fasting)) mg/dl Calcium 8.8 (8.6-10.3) mg/dl Diagnostic Findings Knee X-Ray 11/20/22 12:03 XR knee RT 1 or 2V routine CLINICAL HISTORY: Surgical Post Op TECHNIQUE: 2 views of the right knee were obtained. Comparison: None available at the time of this dictation. FINDINGS: Patient is status post total knee arthroplasty with expected postsurgical changes including soft tissue swelling and subcutaneous emphysema. No periarticular lucency or hardware fracture is seen. IMPRESSION: Expected postoperative appearance status post placement of total knee arthroplasty. ACT 112: Negative or not required by law. Electronically signed by: Lamberto Jimenez M.D. 11/20/2022 3:13 PM PG Care Time/CCT Total # of Minutes Spent Total Time Spent with Patient: Total time spent is greater than 50% in coordination of care (as documented) at patient's floor/unit and/or counseling patient: Coding Level of Care Code 39897 SUB INP/OBS CARE 2/35MIN Diagnoses Status post right knee replacement Z96.651 Hypertension I10 Chronic heart failure with preserved ejection fraction I50.32 GERD (gastroesophageal reflux disease) K21.9 Atrial tachycardia I47.1 CAD (coronary artery disease) I25.10
[2022-11-21 07:44] LABS: Hematocrit (blood only) 31.3 % (37.0-47.0); Hemoglobin 10.7 g/dl (12.0-16.0); Mean Corpuscular Hemoglobin 33.4 pg (25.0-34.0); Mean Corpuscular Hgb Conc 34.2 g/dL (32.0-36.0); Mean Corpuscular Volume 97.8 fL (80.0-100.0); Mean Platelet Volume 10.1 fL (9.4-12.4); Platelet Count 202 K/uL (130-400); RDW Coefficient of Variation 14.2 % (11.5-14.5); RDW Standard Deviation 50.1 fL (36.4-46.3); White Blood Count 11.59 K/ul (4.8-10.8)
[2022-11-21] MEDS: FAMOTIDINE 40 MG TABLET PO SCH (07:45)
[2022-11-21] MEDS: DOCUSATE SODIUM 100 MG CAP PO SCH (07:45)
[2022-11-21] MEDS: ASPIRIN 81 MG ECTAB PO SCH (07:46)
[2022-11-21 08:00] LABS: BUN Creatinine Ratio 24.3 (10-20); Calcium 8.8 mg/dl (8.6-10.3); Creatinine Clr Calc Pharmacy 40.3 ml/min; Est GFR (African American) 56.4 ml/min; Est GFR (Non-African American) 48.6 ml/min; Potassium 4.1 mmol/L (3.5-5.1)
--- NOTE | 2022-11-21 08:20 | Orthopedic Progress Note ---
Date of Service November 21, 2022 Assessment & Plan (1) Arthritis of right knee: Plan: Postop day 1 status post right total knee arthroplasty PT/OT protocols. Weightbearing as tolerated. DVT prophylaxis-aspirin p.o. twice daily, SCDs, YANI montes Pain management as written. DC planning-patient is planning for home health services upon discharge. Admission and Anticipated Discharge Date Admission Date: November 20, 2022 Subjective Postop day 1 Patient sitting in her chair at the bedside. She feels well this morning. She has no complaints. Pain is controlled. Physical Exam Physical Exam: Dressings are clean, dry, and intact. Calves are soft nontender. Neurovascular intact. Toes are mobile. She has good dorsiflexion and plantarflexion of the right foot. Hemovac drainage was 125 cc from the previous shift. Results & Data Vital Signs (Past 12 Hours) Vital Signs Temp Pulse Resp BP Pulse Ox O2 Del Method 11/21/22 06:00 36.6 C 62 18 142/80 H 96 Room Air 11/21/22 02:45 36.5 C 64 16 160/77 H 96 Room Air 11/20/22 21:31 36.5 C 67 18 146/81 H 97 Room Air Laboratory Results Laboratory Results WBC 11.59 K/ul (4.8-10.8) H 11/21/22 06:51 RBC 3.20 M/uL (4.20-5.40) L 11/21/22 06:51 Hgb 10.7 g/dl (12.0-16.0) L 11/21/22 06:51 Hct 31.3 % (37.0-47.0) L 11/21/22 06:51 MCV 97.8 fL (80.0-100.0) 11/21/22 06:51 MCH 33.4 pg (25.0-34.0) 11/21/22 06:51 MCHC 34.2 g/dL (32.0-36.0) 11/21/22 06:51 RDW Std Deviation 50.1 fL (36.4-46.3) H 11/21/22 06:51 RDW Coeff of Rui 14.2 % (11.5-14.5) 11/21/22 06:51 Plt Count 202 K/uL (130-400) 11/21/22 06:51 MPV 10.1 fL (9.4-12.4) 11/21/22 06:51 Sodium 138 mmol/L (136-145) 11/21/22 06:51 Potassium 4.1 mmol/L (3.5-5.1) 11/21/22 06:51 Chloride 106 mmol/L (98-107) 11/21/22 06:51 Carbon Dioxide 26 mmol/L (21-32) 11/21/22 06:51 Anion Gap 6 (3-11) 11/21/22 06:51 BUN 26 mg/dl (6-23) H 11/21/22 06:51 Creatinine 1.07 mg/dl (0.6-1.2) 11/21/22 06:51 Est Cr Clr Drug Dosing 40.3 ml/min 11/21/22 06:51 Est GFR ( Amer) 56.4 ml/min 11/21/22 06:51 Est GFR (Non-Af Amer) 48.6 ml/min 11/21/22 06:51 BUN/Creatinine Ratio 24.3 (10-20) H 11/21/22 06:51 Glucose 140 mg/dl (70-99(Fasting)) H 11/21/22 06:51 Calcium 8.8 mg/dl (8.6-10.3) 11/21/22 06:51 Impressions Knee X-Ray 11/20/22 12:03 XR knee RT 1 or 2V routine CLINICAL HISTORY: Surgical Post Op TECHNIQUE: 2 views of the right knee were obtained. Comparison: None available at the time of this dictation. FINDINGS: Patient is status post total knee arthroplasty with expected postsurgical changes including soft tissue swelling and subcutaneous emphysema. No periarticular lucency or hardware fracture is seen. IMPRESSION: Expected postoperative appearance status post placement of total knee arthroplasty. ACT 112: Negative or not required by law. Electronically signed by: Lamberto Jimenez M.D. 11/20/2022 3:13 PM
[2022-11-21] MEDS ORDERED: amLODIPine BESYLATE 5 MG TAB PO SCH (09:00)
[2022-11-21] MEDS ORDERED: MULTIVITAMIN TAB PO SCH (09:00)
[2022-11-21] MEDS ORDERED: PANTOprazole 40 MG TAB PO SCH (09:00)
[2022-11-21] MEDS ORDERED: CeleBREX 200 MG CAP PO SCH (09:00)
[2022-11-21] MEDS ORDERED: ISOSORBIDE MONO EXTENDED REL 60 MG TABCR PO SCH (09:00)
[2022-11-21] MEDS ORDERED: FUROSEMIDE 20 MG TAB PO SCH (09:15)
--- NOTE | 2022-11-23 09:02 | Discharge Summary ---
Date of Service November 23, 2022 Admission HPI Per Admitting Provider Cristina is a 81-year-old female who presented for preop evaluation prior to her upcoming right total knee replacement. She has longstanding history of right knee pain for several years denies any specific injuries or trauma. She was seen evaluated by Dr. Theodore underwent previous viscosupplementation as well as corticosteroid injection without any relief. After discussing further care she has elected to proceed with a right total knee replacement Admission Exam Per Admitting Provider Physical Exam: HT: 5ft 2in WT: 79.38kg Constitutional: WD/WN, vitals as above no acute distress Respiratory: normal respiratory effort, lungs clear to auscultation no respiratory distress, no labored breathing and does not use accessory muscles Cardiovascular: RRR, no murmur, no edema Gastrointestinal (Abdomen): normal bowel sounds, soft, nontender, no hepatosplenomegaly Musculoskeletal: Knee: + knee abnormal to inspection (RIGHT KNEE: ), + effusio n (+1 effusion), + limited ROM of knee (ROM 0/3/110), + knee ROM with crepitation, + joint line tenderness (medial joint line) and + Annmarie's sign positive; no deformity, no skin erythema, no ecchymosis, no valgus laxity, no varus laxity, anterior drawer test negative, Rocco's sign negative and pivot shift test negative Principal Diagnosis Right knee osteoarthritis Discharge Data Allergies Allergy/AdvReac Type Severity Reaction Status Date / Time No Known Allergies Allergy Verified 11/20/22 08:40 Consultations 11/20/22 14:15 Consult Hospitalist Routine Procedures Performed Operation Date: 11/20/22 10:10 Actual Procedures p Right Total Knee Arthroplasty(Right) - Misha Theodore DO Ordered Studies 10/31/22 05:00 US - OR guided needle placemen Routine 11/20/22 05:00 US - OR guided needle placemen Routine Hospital Course (1) Arthritis of right knee: Patient:CRISTINA KOENIG Admit Date:11/20/22 MR#:[id number] Att Phy:Misha Theodore D.O. Acct ID:[id number] Joslyn Phy:Wilbert Swanson PA-C Date:1940 Fam Phy: Age:82 Location:3E Sex:F Room/Bed:E3- cc: ~ *NOTICE TO RECEIVING [employer]/AGENCY This information is strictly Confidential and protected under [place] law. [place] law prohibits you from making any further disclosure of this information unless further disclosure is expressly permitted by the written consent of the person to whom it pertains or is authorized by law. A general authorization for the release of medical or other information is not sufficient for this purpose. Hospital accepts no responsibility if the information is made available to any other person, INCLUDING THE PATIENT. Date of Service November 21, 2022 Assessment & Plan (1) Arthritis of right knee: Plan: Postop day 1 status post right total knee arthroplasty PT/OT protocols. Weightbearing as tolerated. DVT prophylaxis-aspirin p.o. twice daily, SCDs, YANI hose Pain management as written. DC planning-patient is planning for home health services upon discharge. Admission and Anticipated Discharge Date Admission Date: November 20, 2022 Subjective Postop day 1 Patient sitting in her chair at the bedside. She feels well this morning. She has no complaints. Pain is controlled. Physical Exam Physical Exam: Dressings are clean, dry, and intact. Calves are soft nontender. Neurovascular intact. Toes are mobile. She has good dorsiflexion and plantarflexion of the right foot. Hemovac drainage was 125 cc from the previous shift. Results & Data Vital Signs (Past 12 Hours) Vital Signs Temp PulseA Resp BP Pulse Ox O2 Del Method 11/21/22 06:00 36.6 C 62 18 142/80 H 96 Room Air 11/21/22 02:45 36.5 C 64 16 160/77 H 96 Room Air 11/20/22 21:31 36.5 C 67 18 146/81 H 97 Room Air Laboratory Results Laboratory Results WBC 11.59 K/ul (4.8-10.8) H 11/21/22 06:51 RBC 3.20 M/uL (4.20-5.40) L 11/21/22 06:51 Hgb 10.7 g/dl (12.0-16.0) L 11/21/22 06:51 Hct 31.3 % (37.0-47.0) L 11/21/22 06:51 MCV 97.8 fL (80.0-100.0) 11/21/22 06:51 MCH 33.4 pg (25.0-34.0) 11/21/22 06:51 MCHC 34.2 g/dL (32.0-36.0) 11/21/22 06:51 RDW Std Deviation 50.1 fL (36.4-46.3) H 11/21/22 06:51 RDW Coeff of Rui 14.2 % (11.5-14.5) 11/21/22 06:51 Plt Count 202 K/uL (130-400) 11/21/22 06:51 MPV 10.1 fL (9.4-12.4) 11/21/22 06:51 Sodium 138 mmol/L (136-145) 11/21/22 06:51 Potassium 4.1 mmol/L (3.5-5.1) 11/21/22 06:51 Chloride 106 mmol/L (98-107) 11/21/22 06:51 Carbon Dioxide 26 mmol/L (21-32) 11/21/22 06:51 Anion Gap 6 (3-11) 11/21/22 06:51 BUN 26 mg/dl (6-23) H 11/21/22 06:51 Creatinine 1.07 mg/dl (0.6-1.2) 11/21/22 06:51 Est Cr Clr Drug Dosing 40.3 ml/min 11/21/22 06:51 Est GFR ( Amer) 56.4 ml/min 11/21/22 06:51 Est GFR (Non-Af Amer) 48.6 ml/min 11/21/22 06:51 BUN/Creatinine Ratio 24.3 (10-20) H 11/21/22 06:51 Glucose 140 mg/dl (70-99(Fasting)) H 11/21/22 06:51 Calcium 8.8 mg/dl (8.6-10.3) 11/21/22 06:51 Impressions Knee X-Ray 11/20/22 12:03 XR knee RT 1 or 2V routine CLINICAL HISTORY: Surgical Post Op TECHNIQUE: 2 views of the right knee were obtained. Comparison: None available at the time of this dictation. FINDINGS: Patient is status post total knee arthroplasty with expected postsurgical changes including soft tissue swelling and subcutaneous emphysema. No periarticular lucency or hardware fracture is seen. IMPRESSION: Expected postoperative appearance status post placement of total knee arthroplasty. ACT 112: Negative or not required by law. Electronically signed by: Lamberto Jimenez M.D. 11/20/2022 3:13 PM Signed By: <Electronically signed by Cristofer Huggins MD> 11/21/221712 <Electronically signed by Los Briseno PA-C> 11/21/22819 Created:11/21/22817 Date of Service November 21, 2022 Assessment & Plan (1) Status post right knee replacement: Plan: POD#1 s/p Right Total Knee ArthroplastyUtilizing [employer] 2 and en bloc total knee arthroplasty size 4 femur 3 tibia 9 polytwenty 32 patella - Misha Theodore, DO EBL 5cc WB 11.5k, likely from steroids.Afebrile Hgb 11.4--> 10.7, acute blood loss from surgery as well as some dilution from IVF Pain control, bowel regimen per primary service PT/OT consulted DVT proph: ASA 81mg BID per primary Patient looking/feeling great, discussed w/ ortho and planning for discharge today. (2) Hypertension: Plan: BP stable 142/80 Continue amlodipine, daily (3) Chronic heart failure with preserved ejection fraction: Plan: Currently euvolemic , renal function stable Took 60mg lasix on 11/20 prior to surgery Renal function/BP stable and will resume her usual lasix (she can take at home if wanting to hold off for transport pending timing) (4) GERD (gastroesophageal reflux disease): Plan: Continue pepcid BID (5) Atrial tachycardia: Plan: -Stable -Has not tolerated beta blockers in the past -Continue to monitor (6) CAD (coronary artery disease): Plan: -Stable and asymptomatic , aspirin resumed and BID for DVT proph as above No CP/SOB reported Plan Hospitalist service will sign off on Mrs Koenig at this time. Please call with any questions/concerns. Admission and Anticipated Discharge Date Admission Date: November 20, 2022 Supervising Physician Co-Signing Physician Notes The patient was not seen by me. The chart was reviewed. Case discussed with VINCENZO Alba. Agree with assessment and plan Total Time Total Time Spent Total Time Spent (In Minutes): 5 Discharge Plan Discharge Items Patient Disposition: Home - Self-Care Reason For Visit: Osteoarthritis Knee Right Discharge Diagnosis: Right Knee osteoarthritis Activity: Per Instructions section Weightbearing: Right weightbearing Weightbearing Comment: As tolerated with walker Non-emergency contact: Surgeon Call non-emergency contact if: you have any medication questions, your pain is not controlled, your temperature is above 101.5, your wound has increased redness and your wound has increased drainage Follow-up/Referrals: Misha Theodore DO [Surgeon] - ( follow-up with Dr. Theodore or his PA in 2 weeks from the day of your surgery for your first postoperative visit) Wilbert Swanson PA-C [Primary Care Provider] - 11/27/22 11:00 am Addtl Attending Provider Instructions: ACTIVITY RECOMMENDATIONS: SELF CARE INSTRUCTIONS AFTER TOTAL KNEE REPLACEMENT A. You may need to continue a physical therapy program after discharge from the hospital. There are several options available to you. Your doctor will assist you in selecting the best one for you. 1. An out-patient facility 2 to 3 times a week for therapy or home therapy. 2. Continue working on all exercises taught to you in the hospital. Your goals should be to increase bending of your knee to 90 degrees and beyond and to fully straighten your knee. B. You may progress at your own pace from walking with a walker or crutches to a cane; then to no assistive devices. C. Make walking a part of your daily routine. Be up as much as comfortable with rest periods throughout the day. Rest with leg elevation is very important. Use the ice wrap frequently for the first 3-4 weeks. D. There are no restrictions on activities. You may ride in a car, shop, participate in neurology professor and all social activities. E. Wear the long elastic stockings (YANI hose) 20 hours a day for 2 weeks after surgery. They can be removed several times a day for laundering and for a bath. F. You may shower, no tub baths until cleared by your doctor. SPECIAL CARE INSTRUCTIONS: VERY IMPORTANT TO READ AND REVIEW A. There are a few signs you need to watch for after you are home. Call [facility] if you notice any of the followin. Increased severe knee pain. Some pain is expected especially when you exercise. 2. Increased swelling in your leg or knee; pain or swelling of the calf muscle in either lower leg. 3. Any fluid drainage from the incision. 4. Shortness of breath or chest pain. B. Please call [facility] at if you have any concerns or questions about your operation or recovery. The doctor or his nurse will return your call promptly. C. You must take antibiotics before dental work, bladder, bowel or other surgery. Your doctor will provide you with a permanent care to carry describing this precaution. IMPORTANT: * REMEMBER TO TAKE ASPIRIN, 81 MG, TWICE DAILY FOR 4 WEEKS UNLESS OTHERWISE DIRECTED. THIS IS YOUR BLOOD THINNER. * HIGH RISK PATIENTS MAY BE PRESCRIBED A STRONGER BLOOD THINNER. THIS WILL BE PROVIDED AT DISCHARGE. * CALL IF INCREASED PAIN, REDNESS, DRAINAGE OR FEVER GREATER THAT 101. * WEAR YANI HOSE 20 HOURS PER DAY FOR 2 WEEKS. * VIDA Dressing - This is a large suction dressing covering your incision. This will help pull any excess drainage from the wound and allow your incision to heal properly. You may shower with this if you can keep the unit outside of the shower. If any bleeding or leakage is noted please call your doctor's office. This will remain on your incision for 7 days and then should be removed. This can be done yourself or by the home nursing staff if applicable. The entire unit is disposable once removed. Once removed, keep incision clean and dry. If redness or drainage is noted, please call your surgeon. . FOLLOW UP VISIT: If appointment is not already scheduled: Please call [facility] to make a follow-up appointment for 2 weeks after your surgery at . Stand-Alone Forms: My [facility], Pain - Opioid Pain Management, Smoking Cessation Medications and DC Order Prescriptions: New aspirin 81 mg Tablet,Delayed Release (Dr/Ec) 81 mg PO BID 30 Days Qty: 60 0RF acetaminophen [Tylenol Extra Strength] 500 mg Tablet 1,000 mg PO Q8 14 Days Qty: 84 0RF polyethylene glycol 3350 [Miralax] 17 gram powder in packet 17 g PO DAILY PRN (Reason: constipation) Qty: 5 0RF cefadroxil 500 mg capsule 500 mg PO BID Qty: 28 1RF oxycodone 5 mg tablet 5 mg PO Q4H MDD 6 PRN (Reason: pain) Qty: 30 0RF Continued amlodipine 5 mg tablet 5 mg PO DAILY Qty: 30 11RF isosorbide mononitrate 120 mg tablet extended release 24 hr 120 mg PO DAILY Qty: 90 3RF rosuvastatin 20 mg tablet 20 mg PO HS Qty: 90 3RF nitroglycerin 0.4 mg tablet, sublingual 0.4 mg sublingual Q5M PRN (Reason: chest pain) Qty: 20 3RF Rx Instructions: do not exceed 3 doses per episode lorazepam 0.5 mg tablet 0.5 mg PO .COMPLEX PRN (Reason: Anxiety) Rx Instructions: 0.5 mg PO 1-2 tablets daily prn furosemide [Lasix] 20 mg tablet 60 mg PO DAILY omeprazole 40 mg capsule,delayed release(DR/EC) 40 mg PO DAILY famotidine 40 mg tablet 40 mg PO BID Patient Comments: "not sure I'm taking this any more" Held aspirin 81 mg tablet,chewable 81 mg PO DAILY Qty: 30 2RF Hold Instructions: Hold for 1 month. You can resume your once a day dose of aspirin after you have completed 30 days of aspirin twice daily as ordered by Dr. Theodore. Discharge Orders: Discharge Order (Routine); Ordered 11/21/22 Ordered By: Los Chance/Other Patient Handouts: DVT Post Op Prevention Admission Data Admit Date/Time: 11/20/22 12:03 Attending Provider: Misha Theodore Admit Provider: Misha Theodore Primary Care Provider: Wilbert Swanson Other Providers: José Antonio Roldan ; Vianey Mcclure ; Stanley Urbina ; Allen Puente ; Misha Hinkle ; Jordon Manuel ; Berny Goldsmith ; Tanya Holcomb ; Wilda Adan ; Allen Rouse ; Hannah Garg ; León Ch ; Kristie Up ; Sin Hatch ; Victoriano Aguilar ; Vianey Slater ; Davida Harris ; Baljit Taylor ; Stanley Astudillo ; Hung Hardin ; Blanche Oro ; Pranav Meadows ; Gómez Cotton ; Sumit Sun ; Bambi Holguin ; Samantha Pedroza ; Mariano Crum ; Karissa Barrera ; Sally Dillon ; Allen Gallo ; Misha Mckeon Other Interventions: Discharge Summary Assessment (RN) Last Done: 11/21/22 09:07
== END 2022-11-21 12:59 | disposition home or self-care (01) ==
LOC: 3E 08:08 → ASU 08:08

== ENCOUNTER 2025-02-11 09:43 | Observation (INO) ==
--- NOTE | 2025-02-11 10:13 | Emergency Department Note ---
Impression & Plan Syncope and collapse, Elevated troponin, Acute pain of right wrist ED Provider Note HISTORY OF PRESENT ILLNESS: Patient is an 84-year-old female presenting after a syncopal episode. Patient reportedly started feel very warm and a family member noticed that she started to look like she was falling to the ground and assisted her to the ground. They carried her back into the house and she was reportedly unresponsive for about 5 minutes. They called 911. Patient came to in the house and was her baseline normal self. She does not remember the events of what happened. She denies any complaints on arrival to the ER other than right wrist pain. She reports her right wrist has been hurting for the last few days but was worse last night and this morning. She took Tylenol earlier this morning. She denies any DVT or PE history. Denies any history of cardiac stents. She denies any chest pain, shortness of breath or lightheadedness prior to passing out. She reportedly had no seizure-like activity per witnesses on the scene. Patient denies any abdominal pain, nausea or vomiting. ROS: as above PHYSICAL EXAM: Constitutional: Patient appears in no acute distress. HENT: Head: Normocephalic and atraumatic. Eyes: EOMI, PERRL Mouth/Throat: Mucous membranes moist. Neck: Trachea midline. Neck supple. Cardiovascular: RRR, No murmurs, rubs or gallops. Intact distal pulses. Pulmonary/Chest: No respiratory distress. Breath sounds clear and equal bilaterally. No wheezes or rales. Abdominal: Abdomen soft, no tenderness, rebound or guarding. Musculoskeletal: - RUE: No obvious deformity. Noted to have some soft tissue swelling of the right wrist without any overlying ecchymosis. Patient able to flex and extend at the wrist. No overlying erythema to the wrist joint. Able to give thumbs up, okay sign and cross fingers. Sensation intact to light touch about the nerve distributions of the hand. Skin: Warm and dry. No rash, erythema, pallor or cyanosis Psychiatric: Appropriate mood and affect for situation. Neurological: Alert and keenly responsive. CN II-XII grossly intact, moving all extremities equally and fully. MDM: - Vitals signs stable. - History obtained via patient. History as above. - Chronic conditions affecting care: HTN; HLD; CHF; GERD; CAD - Differential diagnoses include, but are not limited to: ACS; dysrhythmia; PE; intracranial hemorrhage; CVA; electrolyte abnormality - Order placed for continuous cardiac monitoring. At this time, monitor showed rate of 71 bpm with normal sinus rhythm, per my interpretation. - External medical records reviewed. Discharge summary dated 11/23/2022 was reviewed. Patient was admitted for a right total knee replacement. - EKG image interpreted by myself showed normal sinus rhythm. Rate 74 bpm. QT 436. No acute ischemic changes - Laboratory workup interpreted by myself showed normal WBC; normal PT/INR; elevated D-dimer (530); slight hypokalemia (K 3.3); elevated troponin (15.7); normal CK; normal AST/ALT; normal lipase - CT head wo contrast negative for acute intracranial pathology - CT PE negative for PE. Noted to have moderate cardiomegaly and CAD. - UA negative for infection - CXR image reviewed and interpreted by myself was negative for pneumonia, per my interpretation. Radiology notes cardiomegaly with pulmonary vascular congestion. - Xray right wrist negative for fractures but noted to have right wrist soft tissue swelling. - Repeat troponin elevated and risen slightly to 20.4 - Given her age, syncopal episode and rising troponins, will admit for further evaluation and management. - Discussion was had with telehealth case manager about patient's case and need for admission - Hospitalist consulted for admissio - Patient admitted to [facility] for further evaluation and management. ASSESSMENT AND PLAN: Diagnosis: Syncope; elevated troponin; acute right wrist pain Plan: Admit Past Med/Surg History Problem List (Updated 02/11/25 @ 15:19 by Jyothi Qureshi MD) Acute pain of right wrist (Acute) Elevated troponin (Acute) Syncope and collapse (Acute) Dyslipidemia Status post right knee replacement Encounter for pre-operative examination Arthritis of right knee PVCs (premature ventricular contractions) Dyspnea on exertion Hypertension Aortic stenosis Echo 09/2022: Mild aortic stenosis (ANNABEL 1.9-2.0cm2, MG 15.3mmhg) PAC (premature atrial contraction) GERD (gastroesophageal reflux disease) Atrial tachycardia CAD (coronary artery disease) Follows with [facility] Chronic heart failure with preserved ejection fraction Medical History Pulmonary hypertension Obesity Hyperlipidemia Anxiety Surgical History Hx of cardiac catheterization Hx of section History of cholecystectomy Family History Other Family history non-contributory Social History Smoking Status: Never smoker Second Hand Exposure: No; Do You Dip or Chew Tobacco: No; Hx Alcohol Use: No Hx Substance Use: No Preferred Language: Chinese Communication Ability: Effective Manager Payroll Required: No Beliefs That Will Affect Care: None marital status: Current Living Situation: Spouse and Family Feels Safe at Home: Yes Assistive Devices: Walker Allergies Allergies Allergy/AdvReac Type Severity Reaction Status Date / Time No Known Allergies Allergy Verified 10/05/24 09:47 Home Meds Home Medications Medication Instructions Recorded Confirmed lorazepam 0.5 mg tablet 0.5 mg PO .COMPLEX PRN Anxiety 10/13/21 06/17/24 losartan 100 mg tablet 100 mg PO DAILY 03/19/24 06/17/24 metoprolol succinate 25 mg 25 mg PO DAILY 03/19/24 06/17/24 tablet,extended release 24 hr Previous Rx's Medication Instructions Recorded aspirin 81 mg chewable tablet 81 mg PO DAILY #30 tabs 09/21/21 nitroglycerin 0.4 mg sublingual 0.4 mg sublingual Q5M PRN chest 03/19/24 tablet pain #20 tabs ezetimibe 10 mg tablet 10 mg PO DAILY #90 tabs 04/29/24 furosemide 40 mg tablet 40 mg PO BID #180 tabs 04/29/24 rosuvastatin 40 mg tablet 40 mg PO HS #90 tabs 04/29/24 isosorbide mononitrate 30 mg 30 mg PO DAILY #90 tabs 05/01/24 tablet,extended release 24 hr empagliflozin 10 mg tablet 10 mg PO DAILY #30 tabs 10/05/24 (Jardiance) Results & Data (ED) Vital Signs Vital Signs - 24 hr 02/11/25 09:57 02/11/25 10:04 02/11/25 10:17 Temperature 36.9 C Temperature Source Oral Pulse Rate 83 69 Pulse Rate [Apical] Respiratory Rate 20 Respiratory Effort / Characteristics Non-Labored Spontaneous Respiratory Depth Normal Respiratory Pattern Regular Blood Pressure 169/77 H Blood Pressure [Left Arm] Blood Pressure Mean 107 Blood Pressure Mean [Left Arm] Blood Pressure Position Lying Pulse Oximetry 95 Oxygen Delivery Method Room Air Room Air Sepsis Recent Fever Within 48 Hours No Sepsis New/Unexplained Change in Mental Status N/A Sepsis Action Taken by Nursing No Action Required 02/11/25 10:17 02/11/25 13:00 02/11/25 14:27 Temperature Temperature Source Pulse Rate 75 Pulse Rate [Apical] 68 Respiratory Rate 16 Respiratory Effort / Characteristics Respiratory Depth Respiratory Pattern Blood Pressure Blood Pressure [Left Arm] 169/81 H Blood Pressure Mean Blood Pressure Mean [Left Arm] 110 Blood Pressure Position Pulse Oximetry 95 92 Oxygen Delivery Method Room Air Room Air Sepsis Recent Fever Within 48 Hours Sepsis New/Unexplained Change in Mental Status Sepsis Action Taken by Nursing 02/11/25 15:00 Temperature Temperature Source Pulse Rate Pulse Rate [Apical] 71 Respiratory Rate 16 Respiratory Effort / Characteristics Respiratory Depth Respiratory Pattern Blood Pressure Blood Pressure [Left Arm] 137/72 Blood Pressure Mean Blood Pressure Mean [Left Arm] 93 Blood Pressure Position Pulse Oximetry 94 Oxygen Delivery Method Room Air Sepsis Recent Fever Within 48 Hours Sepsis New/Unexplained Change in Mental Status Sepsis Action Taken by Nursing Laboratory Data 02/11/25 10:10 02/11/25 10:10 Lab Results 02/11/25 02/11/25 02/11/25 Range/Units 10:00 10:10 14:19 WBC 9.47 (4.8-10.8) K/ul RBC 3.78 L (4.20-5.40) M/uL Hgb 11.8 L (12.0-16.0) g/dl Hct 36.4 L (37.0-47.0) % MCV 96.3 (80.0-100.0) fL MCH 31.2 (25.0-34.0) pg MCHC 32.4 (32.0-36.0) g/dL RDW Std Deviation 44.3 (36.4-46.3) fL RDW Coeff of Rui 12.6 (11.5-14.5) % Plt Count 246 (130-400) K/uL MPV 10.0 (9.4-12.4) fL Immature Gran % (Auto) 0.3 % Neut % (Auto) 81.2 % Lymph % (Auto) 9.7 % [place] % (Auto) 8.1 % Eos % (Auto) 0.4 % Baso % (Auto) 0.3 % Neut # (Auto) 7.68 H (1.40-6.50) K/uL Lymph # (Auto) 0.92 L (1.20-3.40) K/uL [place] # (Auto) 0.77 H (0.11-0.59) K/uL Eos # (Auto) 0.04 (0.00-0.50) K/uL Baso # (Auto) 0.03 (0.00-0.20) K/uL Immature Gran # (Auto) 0.03 (0.01-0.20) K/uL PT 10.5 (9.0-12.0) Seconds INR 1.0 (0.9-1.1) D-Dimer 530 H* (0-500) ug/L FEU Sodium 137 (136-145) mmol/L Potassium 3.3 L (3.5-5.1) mmol/L Chloride 99 (98-107) mmol/L Carbon Dioxide 29 (21-32) mmol/L Anion Gap 9 (3-11) BUN 20 (6-23) mg/dl Creatinine 0.94 (0.6-1.2) mg/dl Est Cr Clr Drug Dosing 46.1 ml/min eGFR 60.21 BUN/Creatinine Ratio 21.3 H (10-20) Glucose 127 H (70-99(Fasting)) mg/dl Calcium 9.4 (8.6-10.3) mg/dl Magnesium 2.0 (1.7-2.4) mg/dl Total Bilirubin 0.7 (0.2-1.0) mg/dl AST 30 (13-39) U/L ALT 23 (7-52) U/L Alkaline Phosphatase 69 (34-104) U/L Total Creatine Kinase 79 (26-192) U/L Troponin I High Sens 15.7 H 20.4 H (0-14) pg/ml Total Protein 7.6 (6.0-8.3) gm/dl Albumin 4.1 (3.4-5.0) gm/dl Globulin 3.5 (2.5-4.0) gm/dl Albumin/Globulin Ratio 1.2 (0.9-2) Lipase 29 (11-82) U/L TSH 1.611 (0.300-4.500) uIu/ml Urine Color Yellow Urine Appearance Clear (Clear) Urine pH 7.5 (4.5-7.5) Ur Specific [place] 1.010 (1.000-1.030) Urine Protein Negative (Negative) Urine Glucose (UA) Negative (Negative) Urine Ketones Negative (Negative) Urine Blood Trace H (Negative) Urine Nitrite Negative (Negative) Urine Bilirubin Negative (Negative) Urine Urobilinogen Negative (Negative) Ur Leukocyte Esterase Negative (Negative) Urine WBC (Auto) 0-5 (0-5) /hpf Urine RBC (Auto) 6-10 H (0-2) /hpf U Hyaline Cast (Auto) 0-2 (0-2) /lpf U Epithel Cells (Auto) 0-2 (0-2) /hpf Urine Bacteria (Auto) None Seen (None Seen) Urine Comment Administered Medications Discontinued Medications Ioversol (Optiray 320 125ml) 118 ml IV ONCE ONE Stop: 02/11/25 12:39 Last Admin: 02/11/25 12:38 Dose: 118 ml Documented By: TRENT Ketorolac Tromethamine (Ketorolac Tromethamine 15 Mg/Ml Vial) 15 mg IV NOW STA Stop: 02/11/25 11:15 Last Admin: 02/11/25 11:18 Dose: 15 mg Documented By: amdiane Imaging Data Radiologist's Impression: Chest X-Ray 02/11/25 10:12 XR chest 1V portable HISTORY: 84 years-old Female syncope COMPARISON: 10/18/2022 TECHNIQUE: AP view the chest FINDINGS: Cardiac silhouette is enlarged. Pulmonary vascular congestion with interstitial coarsening. Atherosclerosis of the aorta. No pneumothorax, large pleural effusion or overt pulmonary edema. Mild blunting of the left costophrenic angle with ill-defined left basilar densities. Degenerative changes of the shoulders and spine. IMPRESSION: 1. Cardiomegaly with pulmonary vascular congestion. 2. Mild left basilar atelectasis. ACT 112: Negative or not required by law. The above report was generated using voice recognition software. It may contain grammatical, syntax or spelling errors. Electronically signed by: Kevin Norton M.D. 02/11/2025 11:[address] 02/11/25 10:13 CT head/brain wo con CLINICAL HISTORY: 84 years-old Female with syncope. Acute syncope TECHNIQUE: Multiple axial CT images of the head were obtained without contrast. A dose lowering technique was utilized adhering to the principles of ALARA. CT DOSE: 703.85 mGy.cm COMPARISON: Head CT 01/18/2021 FINDINGS: No acute intracranial hemorrhage, midline shift, intracranial mass, hydrocephalus, territorial ischemia or abnormal extra-axial collection. Involutional changes with white matter hypodensities suggestive of chronic microvascular ischemic disease. The calvarium is intact. Mild mucoperiosteal thickening of the left maxillary sinus with mild mucosal thickening of the ethmoid air cells. Trace mastoid effusions. IMPRESSION: No acute intracranial abnormality or calvarial fracture. ACT 112: Negative or not required by law. The above report was generated using voice recognition software. It may contain grammatical, syntax or spelling errors. Electronically signed by: Kevin Norton M.D. 02/11/2025 11:13 AM Wrist X-Ray 02/11/25 10:13 XR wrist RT min 3V routine CLINICAL HISTORY: Right wrist pain. COMPARISON: None FINDINGS: Alignment of the right wrist is anatomic. No acute fractures are identified. Chondrocalcinosis is noted. There is moderate osteoarthritis of the right first carpometacarpal joint and mild triscaphe joint osteoarthritis. Subtle deformity of the right fifth metacarpal shaft is chronic. There is right wrist soft tissue swelling. IMPRESSION: 1. No acute fractures within the right wrist. 2. Moderate degenerative changes within the right wrist. 3. Right wrist soft tissue swelling. ACT 112: Negative or not required by law. Electronically signed by: Clarence Chiang M.D. 02/11/2025 10:56 AM Chest CTA 02/11/25 11:14 CT ANGIOGRAM OF THE CHEST CLINICAL HISTORY: Syncopal episode. COMPARISON STUDY: Chest radiograph October 18, 2022. Chest radiograph performed earlier today. TECHNIQUE: Following the IV administration of 118 cc of Optiray 320, CT angiogram of the chest was performed from the upper abdomen to the thoracic inlet utilizing the pulmonary embolus protocol. Images are reviewed in the axial, sagittal, and coronal planes. 3-D MIPS images are created and assessed. IV contrast was administered without complication. A dose lowering technique was utilized adhering to the principles of ALARA. CT DOSE: 646.15 mGy.cm FINDINGS: No pulmonary emboli are identified although subsegmental pulmonary arteries are suboptimally assessed due to respiratory motion. There is no thoracic aortic dissection. Moderate coronary artery calcification is present. The heart is moderately enlarged. There is no pericardial effusion. There is mild dilatation of the central pulmonary arteries. Calcified subcarinal lymph nodes suggest a previous granulomatous process. There are several small calcified nodules within the lungs which there are benign. There is a 6 mm noncalcified solid left lower lobe nodule on image 97 of 199. There is no consolidation to suggest pneumonia. There is no pneumothorax or pleural effusion. IMPRESSION: 1. No pulmonary emboli identified although subsegmental pulmonary arteries suboptimally assessed due to respiratory motion. 2. No acute intrathoracic findings. 3. Moderate cardiomegaly and coronary artery calcification. 4. 6 mm left lower lobe nodule. This is likely benign. A chest CT in 6 months to ensure stability is recommended. ACT 112: Negative or not required by law. Electronically signed by: Clarence Chiang M.D. 02/11/2025 1:01 PM Discharge Plan Visit Data Chief Complaint: Syncope Stated Complaint: SYNCOPE ED Provider: Jyothi Qureshi Discharge Problem: Syncope and collapse, Elevated troponin, Acute pain of right wrist Patient Disposition: Admitted As Inpatient Condition: Fair Forms Stand Alone Forms: My [facility] Prescriptions Prescriptions: No Action aspirin 81 mg tablet,chewable 81 mg PO DAILY Qty: 30 2RF Hold Instructions: Hold for 1 month. You can resume your once a day dose of aspirin after you have completed 30 days of aspirin twice daily as ordered by Dr. Theodore. lorazepam 0.5 mg tablet 0.5 mg PO .COMPLEX PRN (Reason: Anxiety) Rx Instructions: 0.5 mg PO 1-2 tablets daily prn metoprolol succinate 25 mg tablet extended release 24 hr 25 mg PO DAILY losartan 100 mg tablet 100 mg PO DAILY nitroglycerin 0.4 mg tablet, sublingual 0.4 mg sublingual Q5M PRN (Reason: chest pain) Qty: 20 3RF Rx Instructions: do not exceed 3 doses per episode furosemide 40 mg tablet 40 mg PO BID Qty: 180 3RF Rx Instructions: Take 40 mg twice daily. You can space the doses out by 6 hours. rosuvastatin 40 mg tablet 40 mg PO HS Qty: 90 3RF Rx Instructions: Take 1 tablet in the evening for cholesterol ezetimibe 10 mg tablet 10 mg PO DAILY Qty: 90 3RF isosorbide mononitrate 30 mg tablet extended release 24 hr 30 mg PO DAILY Qty: 90 3RF Jardiance 10 mg tablet 10 mg PO DAILY Qty: 30 5RF Referrals Referrals: Wilbert Swanson, MOISE [Primary Care Provider] -
[2025-02-11 10:32] LABS: Appearance Urine Clear (Clear); Bacteria Urine Automated None Seen (None Seen); Cast Urine Automated 0-2 /lpf (0-2); Epithelial Cell Urine Auto 0-2 /hpf (0-2); Glucose Urine UA Negative (Negative); WBC Urine Automated 0-5 /hpf (0-5)
[2025-02-11 10:40] LABS: Hematocrit (blood only) 36.4 % (37.0-47.0); Hemoglobin 11.8 g/dl (12.0-16.0); Immature Granulocytes # (auto) 0.03 K/uL (0.01-0.20); Immature Granulocytes % (auto) 0.3 %; Mean Corpuscular Hemoglobin 31.2 pg (25.0-34.0); Mean Corpuscular Volume 96.3 fL (80.0-100.0); Platelet Count 246 K/uL (130-400); RDW Standard Deviation 44.3 fL (36.4-46.3); Red Blood Count 3.78 M/uL (4.20-5.40); White Blood Count 9.47 K/ul (4.8-10.8)
[2025-02-11 10:47] LABS: INR 1.0 (0.9-1.1); Prothrombin Time 10.5 Seconds (9.0-12.0)
[2025-02-11 10:55] LABS: Albumin Level 4.1 gm/dl (3.4-5.0); Anion Gap 9.0 (3-11); Bilirubin,Total 0.7 mg/dl (0.2-1.0); Calcium 9.4 mg/dl (8.6-10.3); Carbon Dioxide 29.0 mmol/L (21-32); Chloride 99.0 mmol/L (98-107); Magnesium 2.0 mg/dl (1.7-2.4); Potassium 3.3 mmol/L (3.5-5.1); Sodium 137.0 mmol/L (136-145)
--- NOTE | 2025-02-11 10:57 | XRay Report ---
XR wrist RT min 3V routine CLINICAL HISTORY: Right wrist pain. COMPARISON: None FINDINGS: Alignment of the right wrist is anatomic. No acute fractures are identified. Chondrocalcin osis is noted. There is moderate osteoarthritis of the right first carpometacarpal joint and mild tri scaphe joint osteoarthritis. Subtle deformity of the right fifth metacarpal shaft is chronic. There i s right wrist soft tissue swelling. IMPRESSION: 1. No acute fractures within the right wrist. 2. Moderate degenerative changes within the right wrist. 3. Right wrist soft tissue swelling. ACT 112: Negative or not required by law. Electronically signed by: Clarence Chiang M.D. 02/11/2025 10:56 AM
[2025-02-11 11:01] LABS: Alanine Aminotransferase 23.0 U/L (7-52); Albumin Globulin Ratio 1.2 (0.9-2); Alkaline Phosphatase 69.0 U/L (34-104); Blood Urea Nitrogen 20.0 mg/dl (6-23); Creatine Kinase 79.0 U/L (26-192); Creatinine Clr Calc Pharmacy 46.1 ml/min; Globulin 3.5 gm/dl (2.5-4.0); Glucose 127.0 mg/dl (70-99(Fasting)); Lipase 29.0 U/L (11-82); Total Protein 7.6 gm/dl (6.0-8.3)
[2025-02-11 11:12] LABS: Thyroid Stimulating Hormone 1.611 uIu/ml (0.300-4.500)
--- NOTE | 2025-02-11 11:15 | CT Scan Report ---
CT head/brain wo con CLINICAL HISTORY: 84 years-old Female with syncope. Acute syncope TECHNIQUE: Multiple axial CT images of the head were obtained without contrast. A dose lowering tech nique was utilized adhering to the principles of ALARA. CT DOSE: 703.85 mGy.cm COMPARISON: Head CT 01/18/2021 FINDINGS: No acute intracranial hemorrhage, midline shift, intracranial mass, hydrocephalus, territorial ischem ia or abnormal extra-axial collection. Involutional changes with white matter hypodensities suggestiv e of chronic microvascular ischemic disease. The calvarium is intact. Mild mucoperiosteal thickening of the left maxillary sinus with mild mucosa l thickening of the ethmoid air cells. Trace mastoid effusions. IMPRESSION: No acute intracranial abnormality or calvarial fracture. ACT 112: Negative or not required by law. The above report was generated using voice recognition software. It may contain grammatical, syntax o r spelling errors. Electronically signed by: Kevin Norton M.D. 02/11/2025 11:13 AM
--- NOTE | 2025-02-11 11:17 | XRay Report ---
XR chest 1V portable HISTORY: 84 years-old Female syncope COMPARISON: 10/18/2022 TECHNIQUE: AP view the chest FINDINGS: Cardiac silhouette is enlarged. Pulmonary vascular congestion with interstitial coarsening. Atheroscl erosis of the aorta. No pneumothorax, large pleural effusion or overt pulmonary edema. Mild blunting of the left costophrenic angle with ill-defined left basilar densities. Degenerative changes of the s houlders and spine. IMPRESSION: 1. Cardiomegaly with pulmonary vascular congestion. 2. Mild left basilar atelectasis. ACT 112: Negative or not required by law. The above report was generated using voice recognition software. It may contain grammatical, syntax o r spelling errors. Electronically signed by: Kevin Norton M.D. 02/11/2025 11:16 AM
[2025-02-11] MEDS: KETOROLAC TROMETHAMINE 15 MG/ML VIAL IV STA (11:18)
[2025-02-11] MEDS: OPTIRAY 320 125ml IV ONE (12:38)
--- NOTE | 2025-02-11 13:03 | CT Scan Report ---
CT ANGIOGRAM OF THE CHEST CLINICAL HISTORY: Syncopal episode. COMPARISON STUDY: Chest radiograph October 18, 2022. Chest radiograph performed earlier today. TECHNIQUE: Following the IV administration of 118 cc of Optiray 320, CT angiogram of the chest was pe rformed from the upper abdomen to the thoracic inlet utilizing the pulmonary embolus protocol. Images are reviewed in the axial, sagittal, and coronal planes. 3-D MIPS images are created and assessed. I V contrast was administered without complication. A dose lowering technique was utilized adhering to the principles of ALARA. CT DOSE: 646.15 mGy.cm FINDINGS: No pulmonary emboli are identified although subsegmental pulmonary arteries are suboptimall y assessed due to respiratory motion. There is no thoracic aortic dissection. Moderate coronary arter y calcification is present. The heart is moderately enlarged. There is no pericardial effusion. There is mild dilatation of the central pulmonary arteries. Calcified subcarinal lymph nodes suggest a pre vious granulomatous process. There are several small calcified nodules within the lungs which there a re benign. There is a 6 mm noncalcified solid left lower lobe nodule on image 97 of 199. There is no consolidation to suggest pneumonia. There is no pneumothorax or pleural effusion. IMPRESSION: 1. No pulmonary emboli identified although subsegmental pulmonary arteries suboptimally assessed due to respiratory motion. 2. No acute intrathoracic findings. 3. Moderate cardiomegaly and coronary artery calcification. 4. 6 mm left lower lobe nodule. This is likely benign. A chest CT in 6 months to ensure stability is recommended. ACT 112: Negative or not required by law. Electronically signed by: Clarence Chiang M.D. 02/11/2025 1:01 PM
--- NOTE | 2025-02-11 14:43 | History & Physical Report ---
"Date of Service February 11, 2025 Assessment & Plan (1) Syncope and collapse: (2) CAD (coronary artery disease): (3) Aortic stenosis: (4) Hyperlipidemia: Elle Evans is a 84F with a PMHx of CHpEF, CAD, atrial tachycardia, HTN and DLD who presents after syncope without prodrome. Admitted for further workup #Syncope without prodrome - no signs of dehydrations, no recent medications changes, no hx of DM and ate breakfast prior. Does have hx of atrial t achycardia. Caught by her family, did not hit her head. Monitor for arrhythmia - consider 30 day monitor Check orthostatic VS Check echo AM CBC and BMP #CAD| HTN | HFpEF - euvolemic on exam Continue Aspirin, Zetia, Statin, Imdur, losartan, metoprolol Hold Lasix pending orthostatic vital signs #Wrist pain - xray without fracture but signifcant arthritis Ice and tylenol for pain could consider steroid course if not improving Dispo: obs to med/tele DVT proh: low risk, add chemical if prolonged stay History of Present Illness Chief Complaint: syncope Primary Care Provider: Wilbert Price Kiki Evans is a 84F with a PMHx of CHpEF, CAD, atrial tachycardia, HTN and DLD who presents after syncope. She was standing at wedding for a friend and passed out without any warning. Family saw her going down and was able to catch her so she did not hit her head. No urinary incontinence - no seizure like activity. Patient had loss of consciousness for approximately 5 minutes and then returned to her normal state of health. reports feeling her normal state of health this morning when she woke up, also over the last few days. She ate breakfast this morning and took her medications as normal. No leg swelling or signs of fluid overload. In the ER on exam she reports that she is feeling well. Her main concern is her wrist pain and also the cause of her syncopal event. She decides the wrist she has no other acute complaints. She has no known injury to the wrist she noticed that it started bothering her yesterday and has gotten worse. Allergies Allergy/AdvReac Type Severity Reaction Status Date / Time No Known Allergies Allergy Verified 10/05/24 09:47 Home Medications Medication Instructions Recorded Confirmed Type aspirin 81 mg chewable tablet 81 mg PO DAILY #30 tabs 09/21/21 02/11/25 Rx lorazepam 0.5 mg tablet 0.5 mg PO .COMPLEX PRN Anxiety 10/13/21 02/11/25 History losartan 100 mg tablet 100 mg PO DAILY 03/19/24 02/11/25 History metoprolol succinate 25 mg 25 mg PO DAILY 03/19/24 02/11/25 History tablet,extended release 24 hr nitroglycerin 0.4 mg sublingual 0.4 mg sublingual Q5M PRN chest 03/19/24 02/11/25 Rx tablet pain #20 tabs ezetimibe 10 mg tablet 10 mg PO DAILY #90 tabs 04/29/24 02/11/25 Rx furosemide 40 mg tablet 40 mg PO BID #180 tabs 04/29/24 02/11/25 Rx rosuvastatin 40 mg tablet 40 mg PO HS #90 tabs 04/29/24 02/11/25 Rx isosorbide mononitrate 30 mg 30 mg PO DAILY #90 tabs 05/01/24 02/11/25 Rx tablet,extended release 24 hr Past Med/Surg History Problem List (Updated 02/11/25 @ 15:19 by Jyothi Qureshi MD) Acute pain of right wrist (Acute) Elevated troponin (Acute) Syncope and collapse (Acute) Dyslipidemia Status post right knee replacement Encounter for pre-operative examination Arthritis of right knee PVCs (premature ventricular contractions) Dyspnea on exertion Hypertension Aortic stenosis Echo 09/2022: Mild aortic stenosis (ANNABEL 1.9-2.0cm2, MG 15.3mmhg) PAC (premature atrial contraction) GERD (gastroesophageal reflux disease) Atrial tachycardia CAD (coronary artery disease) Follows with [facility] Chronic heart failure with preserved ejection fraction Medical History Pulmonary hypertension Obesity Hyperlipidemia Anxiety Surgical History Hx of cardiac catheterization Hx of section History of cholecystectomy Family History Other Family history non-contributory Social History Smoking Status: Never smoker Second Hand Exposure: No; Do You Dip or Chew Tobacco: No; Hx Alcohol Use: No Hx Substance Use: No Preferred Language: Brazilian Communication Ability: Effective Stabber Required: No Beliefs That Will Affect Care: None marital status: Current Living Situation: Family and Significant Other Other Information That Helps Us Care for You: No Feels Safe at Home: Yes Safety Concerns: Feels Safe At This Time Assistive Devices: Denture - Upper, Denture - Lower, Glasses and Hearing Aid - Bilateral Review of Systems Review of Systems: All systems reviewed & are unremarkable except as noted in Subjective Physical Exam Physical Exam: General: NAD, VS as above HEENT: MMM Resp: normal respiratory effort, lungs clear to auscultation CV: RRR, no murmur, Abd: normal bowel sounds, non tender, soft Extremities: Moves all extremities, no LE edema. full rom of right wrist, not pitting edema, no erythema Neuro: A&O x3, Skin: intact, no lesions noted Results & Data Results & Data Vital Signs (Past 12 Hours) Vital Signs Temp Pulse Pulse Resp BP BP Pulse Ox 02/11/25 14:27 75 02/11/25 13:00 68 16 169/81 H 92 02/11/25 10:17 95 02/11/25 10:17 02/11/25 10:04 69 02/11/25 09:57 98.4 F 83 20 169/77 H 95 O2 Del Method 02/11/25 14:27 02/11/25 13:00 Room Air 02/11/25 10:17 Room Air 02/11/25 10:17 Room Air 02/11/25 10:04 02/11/25 09:57 Room Air Laboratory Results CBC and chemistry reviewed UA reviewed D-dimer reviewed Diagnostic Findings chest CTA reviewed Supervising Physician Co-Signing Physician Notes I personally saw and examined the patient. I independently reviewed the labs, EKG, imaging, problem list, medication list, past medical history and family history. I verified all pat points and agree with Janeth Gaffney PA-C with the following exceptions and/or additions: 84 year old presents to the ER with syncopal episode O/E HS RRR, ALEXSANDRA present LUSB, CTAB, Abdo SNT A/P Syncope - unclear preceding symptoms. Mostly likely from standing for a long time in setting of multiple antihypertensives. Monitor on telemetry overnight (consider groundwater monitoring technician as outpatient). TTE for murmur although patient notes this is not new. Orthostatics tomorrow. PG Care Time/CCT Total # of Minutes Spent Total Time Spent with Patient: Total time spent is greater than 50% in coordination of care (as documented) at patient's floor/unit and/or counseling patient: Coding Level of Care Code 84832 INT INP/OBS CARE 3/75MIN Diagnoses Syncope and collapse R55 CAD (coronary artery disease) I25.10 Aortic stenosis I35.0 Hyperlipidemia E78.5"
--- NOTE | 2025-02-11 15:50 | Electrocardiogram Report ---
Test Reason : Blood Pressure : */* mmHG Vent. Rate : 74 BPM Atrial Rate : 74 BPM P-R Int : 188 ms QRS Dur : 114 ms QT Int : 436 ms P-R-T Axes : 74 -69 7 degrees QTcB Int : 483 ms Sinus rhythm with Premature atrial complexes Incomplete right bundle branch block Left anterior fascicular block Nonspecific ST abnormality Abnormal ECG When compared with ECG of 18-Oct-2022 09:10, Premature atrial complexes are now Present Incomplete right bundle branch block is now Present Confirmed by Maynor Sullivan ([id number]) on 02/11/2025 3:49:39 PM Referred By: Confirmed By: Maynor Sullivan
--- NOTE | 2025-02-11 16:06 | XCELERA ---
[id number] \\[id number]
[2025-02-11] MEDS ORDERED: ACETAMINOPHEN 325 MG TAB PO PRN (17:04)
[2025-02-11] MEDS ORDERED: ONDANSETRON INJ 2 MG/ML 2 ML VIAL IV PRN (17:04)
[2025-02-11] MEDS ORDERED: POLYETHYLENE (MIRALAX) 17 GM PACK PO PRN (17:04)
[2025-02-11] MEDS ORDERED: LORazepam 0.5 MG TAB PO PRN (18:41)
[2025-02-11 19:06] VITALS: RESP 18
[2025-02-11] MEDS: POTASSIUM CHLORIDE CRTAB 20 MEQ TABCR PO STA (19:46)
[2025-02-11] MEDS: ROSUVASTATIN CALCIUM 20 MG TAB PO SCH (20:09)
[2025-02-11] MEDS: MELATONIN 3 MG TAB PO PRN (20:09)
[2025-02-12 03:10] VITALS: O2SAT 98
[2025-02-12 06:58] LABS: Hematocrit (blood only) 33.9 % (37.0-47.0); Hemoglobin 11.3 g/dl (12.0-16.0); Mean Corpuscular Hemoglobin 31.7 pg (25.0-34.0); Mean Corpuscular Volume 95.2 fL (80.0-100.0); Platelet Count 216 K/uL (130-400); RDW Standard Deviation 44.4 fL (36.4-46.3); Red Blood Count 3.56 M/uL (4.20-5.40); White Blood Count 5.52 K/ul (4.8-10.8)
[2025-02-12 07:25] LABS: Anion Gap 7.0 (3-11); Blood Urea Nitrogen 21.0 mg/dl (6-23); Calcium 9.1 mg/dl (8.6-10.3); Carbon Dioxide 30.0 mmol/L (21-32); Chloride 105.0 mmol/L (98-107); Creatinine Clr Calc Pharmacy 45.6 ml/min; Glucose 102.0 mg/dl (70-99(Fasting)); Potassium 3.3 mmol/L (3.5-5.1); Sodium 142.0 mmol/L (136-145)
[2025-02-12 08:38] VITALS: TEMP 98.8
[2025-02-12] MEDS: ASPIRIN 81 MG ECTAB PO SCH (09:00)
[2025-02-12] MEDS: EZETIMIBE 10 MG TAB PO SCH (09:00)
[2025-02-12] MEDS: ISOSORBIDE MONO EXTENDED REL 30 MG TABCR PO SCH (09:01)
[2025-02-12] MEDS: LOSARTAN POTASSIUM 50 MG TAB PO SCH (09:01)
[2025-02-12] MEDS: METOPROLOL SUCC 25MG EXT REL TAB PO SCH (09:03)
[2025-02-12 14:38] VITALS: BP 184/71; PULSE 71
--- NOTE | 2025-02-12 16:58 | Discharge Summary ---
"Discharge Summary Date of Service February 12, 2025 Principal Dx & Hospital Course #1 = Principal Diagnosis (1) Syncope and collapse: (2) CAD (coronary artery disease): (3) Aortic stenosis: (4) Hyperlipidemia: Plan Cristina is a 84F with a PMHx of CHpEF, CAD, atrial tachycardia, HTN and DLD who presents after syncope without prodrome. Admitted for further workup #Syncope without prodrome - no signs of dehydrations, no recent medications changes, no hx of DM and ate breakfast prior. Does have hx of atrial tachycardia. Caught by her family, did not hit her head. Monitor for arrhythmia - consider 30 day monitor Check orthostatic VS Check echo AM CBC and BMP #CAD| HTN | HFpEF - euvolemic on exam Continue Aspirin, Zetia, Statin, Imdur, losartan, metoprolol Hold Lasix pending orthostatic vital signs #Wrist pain - xray without fracture but signifcant arthritis Ice and tylenol for pain could consider steroid course if not improving Dispo: obs to med/tele DVT proh: low risk, add chemical if prolonged stay Admission HPI Per Admitting Provider Cristina is a 84F with a PMHx of CHpEF, CAD, atrial tachycardia, HTN and DLD who presents after syncope. She was standing at wedding for a friend and passed out without any warning. Family saw her going down and was able to catch her so she did not hit her head. No urinary incontinence - no seizure like activity. Patient had loss of consciousness for approximately 5 minutes and then returned to her normal state of health. reports feeling her normal state of health this morning when she woke up, also over the last few days. She ate breakfast this morning and took her medications as normal. No leg swelling or signs of fluid overload. In the ER on exam she reports that she is feeling well. Her main concern is her wrist pain and also the cause of her syncopal event. She decides the wrist she has no other acute complaints. She has no known injury to the wrist she noticed that it started bothering her yesterday and has gotten worse. Discharge Plan Discharge Items Patient Disposition: Home - Self-Care Reason For Visit: SYNCOPE Discharge Diagnosis: Syncope Condition on Discharge: Fair Activity: Resume your previous activity Non-emergency contact: Primary Care Provider Call non-emergency contact if: you have any medication questions Follow-up/Referrals: Wilbert Swanson PA-C [Primary Care Provider] - (Please call your primary care provider to schedule a hospital follow-up appointment within 7-10 days) Diet: Heart Healthy Addtl Attending Provider Instructions: Recommend starting carvedilol instead of metoprolol. Side effects are the same as metoprolol but we are hoping this may decrease the episodes of dizziness and fainting. Please start carvedilol tomorrow. Recommend followup with your PCP in 1-2 weeks. Your wrist showed signs of arthritis and no signs of a broken bone. Pending Studies at Discharge: No Stand-Alone Forms: My [facility], Smoking Cessation Medications and DC Order Prescriptions: New carvedilol 3.125 mg tablet 3.125 mg PO BID Qty: 60 0RF Rx Instructions: First dose tomorrow 02/13 must administer with a meal/food Continued aspirin 81 mg tablet,chewable 81 mg PO DAILY Qty: 30 2RF Hold Instructions: Hold for 1 month. You can resume your once a day dose of aspirin after you have completed 30 days of aspirin twice daily as ordered by Dr. Theodore. lorazepam 0.5 mg tablet 0.5 mg PO .COMPLEX PRN (Reason: Anxiety) Rx Instructions: 0.5 mg PO 1-2 tablets daily prn losartan 100 mg tablet 100 mg PO DAILY nitroglycerin 0.4 mg tablet, sublingual 0.4 mg sublingual Q5M PRN (Reason: chest pain) Qty: 20 3RF Rx Instructions: do not exceed 3 doses per episode furosemide 40 mg tablet 40 mg PO BID Qty: 180 3RF Rx Instructions: Take 40 mg twice daily. You can space the doses out by 6 hours. rosuvastatin 40 mg tablet 40 mg PO HS Qty: 90 3RF Rx Instructions: Take 1 tablet in the evening for cholesterol ezetimibe 10 mg tablet 10 mg PO DAILY Qty: 90 3RF isosorbide mononitrate 30 mg tablet extended release 24 hr 30 mg PO DAILY Qty: 90 3RF Discontinued metoprolol succinate 25 mg tablet extended release 24 hr 25 mg PO DAILY Discharge Orders: Discharge Order (Routine); Ordered 02/12/25 Ordered By: Gómez Cotton Admission Data Admit Date/Time: 02/11/25 15:03 Attending Provider: Gómez Cotton Admit Provider: Stanley Astudillo Primary Care Provider: Wilbert Swanson Other Providers: Stanley Astudillo Other Interventions: Discharge Summary Assessment (RN) Last Done: 02/12/25 14:37 Hospital Stay Data Consultations 02/11/25 14:16 ED Decision to Admit Stat Diagnostic Imagining Performed 02/11/25 10:13 CT head/brain wo con Stat 02/11/25 11:14 CT for pulmonary embolism PE [CT angio chest PE protocol] Stat Pending Results Patient Have Any Pending Studies at Discharge: No Discharge Instructions Given to Patient (Per Discharging Provider) Recommend starting carvedilol instead of metoprolol. Side effects are the same as metoprolol but we are hoping this may decrease the episodes of dizziness and fainting. Please start carvedilol tomorrow. Recommend followup with your PCP in 1-2 weeks. Your wrist showed signs of arthritis and no signs of a broken bone. Coding Diagnoses Syncope and collapse R55 CAD (coronary artery disease) I25.10 Aortic stenosis I35.0 Hyperlipidemia E78.5"
--- NOTE | 2025-02-14 05:59 | Electrocardiogram Report ---
Test Reason : Blood Pressure : */* mmHG Vent. Rate : 63 BPM Atrial Rate : 63 BPM P-R Int : 196 ms QRS Dur : 120 ms QT Int : 458 ms P-R-T Axes : 64 -38 3 degrees QTcB Int : 468 ms Normal sinus rhythm Left axis deviation Right bundle branch block Abnormal ECG When compared with ECG of 11-Feb-2025 09:57, Premature atrial complexes are no longer Present Confirmed by Андрей Hernandez ([id number]) on 02/14/2025 5:58:40 AM Referred By: REFERRED SELF Confirmed By: Андрей Hernandez
== END 2025-02-12 15:40 | disposition home or self-care (01) ==
LOC: 2N 09:43 → ED 09:43 → SUATTDRO 15:03 → 2N 16:18

== ENCOUNTER 2025-04-12 16:48 | Inpatient (IN) ==
[2025-04-12] MEDS: SODIUM CHLORIDE 0.9% 1,000 ML IV STA (17:11)
--- NOTE | 2025-04-12 17:14 | Emergency Department Note ---
Impression & Plan Atrial fibrillation with rapid ventricular response ED Provider Note NAME: JAMIE KOENIG AGE: 84 SEX: F ARRIVES VIA: Walk-In INFORMANT: Patien ED PROVIDER(S): Sin Parra MD CHIEF COMPLAINT: shortness of breath, chest tightness PLAN: Disposition: hospitalize Condition: Fair MEDICAL DECISION MAKING: Patient arrived with shortness of breath, chest tightness, found to be in rapid atrial fibrillation with a rate around 142, no obvious ST segment changes. Patient with 5 troponins, normal D-dimer, chest x-ray generally unremarkable. She received 2 doses of IV metoprolol without much improvement in her heart rate. After 1 dose of IV Cardizem, she had marked improvement in her heart rate down to the 70s and 80s and her blood pressure remains okay. She generally feels okay and feels somewhat improved at this point. Given the lack of response to metoprolol and her possibly new onset atrial fibrillation I think she would benefit from hospitalization and medication adjustments. She was previously on Eliquis but stopped it due to suspected side effects. 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 It is unclear if this is a new diagnosis for her but no obviously diagnosed atrial fibrillation despite a diagnosis of atrial tachycardia in the past. She does have chronic heart disease as well. Triage Nursing notes reviewed and agree them. [Additional history obtained from] [] [Prior medical records reviewed] [] Vital Signs: reviewed and remarkable for [no significant abnormalities] Differential diagnosis: Atrial fibrillation, atrial tachycardia, pulmonary embolism, NSTEMI, congestive heart failure ER treatment provided: Patient given IV fluids, 2 doses of IV metoprolol and then 1 dose of IV Cardizem Diagnostics interpreted by me: ECG: Rapid atrial fibrillation without any acute ST segment changes, heart rate around 140 Cardiac Monitoring: [none] Laboratory studies: [See below] [] Imaging studies: [See below] [] Consultation(s): [none] HPI: 84/F arrives for evaluation of Return, tachycardia, atrial fibrillation. She was sent by her yard inspector. She states she has had chest tightness and shortness of breath for the last 3 days or so. She does not think she has had atrial fibrillation before. She does have her medications here and she is on aspirin, metoprolol. She also states she is supposed to take Eliquis but she has not taken it as she did not like the way it made her feel. She denies chest pain but states it does feel "tight". ROS: See above HPI for pertinent positives & negatives. A total of [10] systems reviewed and were otherwise negative. PAST MEDICAL HISTORY:[See Below] PAST SURGICAL HISTORY:[See Below] FAMILY HISTORY:[See Below] SOCIAL HISTORY:[See Below] HOME MEDICATIONS:[See Below] ALLERGIES:[See Below] VITALS:[See Below] PHYSICAL EXAMINATION: Gen: No acute distress, generally well appearing Eyes: PERRL, no redness or injection, EOMI Neck: Supple, normal ROM CV: S1, S2, Tachycardia, irregular rhythm no lower extremity edema Pulm: CTA bilaterally, no increased work of breathing, no wheezing GI: Abd soft, nontender, normal bowel sounds, no distension : No CVA tenderness, no suprapubic abdominal tenderness or distension Neuro: No acute focal neuro deficits, normal strength and sensation Skin: No rashes, wounds, or erythema. ED COURSE: Times/Reassessments: 5:30 PM: Patient arrived in heart rate from 130-150, given 5 mg of metoprolol IV and 1 L of fluid and had moderate response to treatment, was initally down to the 90s seem to be creeping back up in terms of heart rate up into the 110s. 8:00 PM, patient reassessed, after Cardizem her heart rate is markedly improved into the 80s to 90s. Likely plan for p.o. dose of Cardizem and consultation with hospitalist. Sin Parra MD Past Med/Surg History Problem List (Updated 04/12/25 @ 23:14 by Sin Parra MD) Atrial fibrillation with rapid ventricular response (Acute) Acute pain of right wrist (Acute) Elevated troponin (Acute) Syncope and collapse (Acute) Dyslipidemia Status post right knee replacement Encounter for pre-operative examination Arthritis of right knee PVCs (premature ventricular contractions) Dyspnea on exertion Hypertension Aortic stenosis Echo 09/2022: Mild aortic stenosis (ANNABEL 1.9-2.0cm2, MG 15.3mmhg) PAC (premature atrial contraction) GERD (gastroesophageal reflux disease) Atrial tachycardia CAD (coronary artery disease) Follows with [facility] Chronic heart failure with preserved ejection fraction Medical History Pulmonary hypertension Obesity Hyperlipidemia Anxiety Surgical History Hx of cardiac catheterization Hx of section History of cholecystectomy Family History Other Family history non-contributory Social History Smoking Status: Never smoker Second Hand Exposure: No; Do You Dip or Chew Tobacco: No; Hx Alcohol Use: No Hx Substance Use: No Preferred Language: Ukrainian Communication Ability: Effective Chaplain Resident Required: No Beliefs That Will Affect Care: None marital status: Current Living Situation: Family and Significant Other Feels Safe at Home: Yes Assistive Devices: Denture - Upper, Denture - Lower, Glasses and Hearing Aid - Bilateral Allergies Allergies Allergy/AdvReac Type Severity Reaction Status Date / Time No Known Allergies Allergy Verified 04/12/25 16:12 Home Meds Home Medications Medication Instructions Recorded Confirmed lorazepam 0.5 mg tablet 0.5 mg PO .COMPLEX PRN Anxiety 10/13/21 04/12/25 losartan 100 mg tablet 100 mg PO DAILY 03/19/24 04/12/25 Previous Rx's Medication Instructions Recorded aspirin 81 mg chewable tablet 81 mg PO DAILY #30 tabs 09/21/21 nitroglycerin 0.4 mg sublingual 0.4 mg sublingual Q5M PRN chest 03/19/24 tablet pain #20 tabs ezetimibe 10 mg tablet 10 mg PO DAILY #90 tabs 04/29/24 furosemide 40 mg tablet 40 mg PO BID #180 tabs 04/29/24 rosuvastatin 40 mg tablet 40 mg PO HS #90 tabs 04/29/24 isosorbide mononitrate 30 mg 30 mg PO DAILY #90 tabs 05/01/24 tablet,extended release 24 hr Results & Data (ED) Vital Signs Vital Signs - 24 hr 04/12/25 16:53 04/12/25 16:59 04/12/25 17:01 Temperature 36.3 C L Temperature Source Temporal Artery Scan Pulse Rate 147 H Pulse Rate [Apical] 117 H Respiratory Rate 18 20 Respiratory Effort / Characteristics Non-Labored Spontaneous Non-Labored Respiratory Depth Normal Normal Respiratory Pattern Regular Blood Pressure 160/118 H Blood Pressure [Right Arm] 150/113 H Blood Pressure Mean 132 Blood Pressure Mean [Right Arm] 125 Pulse Oximetry 95 96 95 Oxygen Delivery Method Room Air Room Air Room Air Sepsis Recent Fever Within 48 Hours No Sepsis New/Unexplained Change in Mental Status No Sepsis Action Taken by Nursing No Action Required 04/12/25 17:08 04/12/25 17:15 04/12/25 17:24 Temperature Temperature Source Pulse Rate 134 H 135 H 127 H Pulse Rate [Apical] Respiratory Rate 20 Respiratory Effort / Characteristics Respiratory Depth Respiratory Pattern Blood Pressure 150/113 H 141/94 H Blood Pressure [Right Arm] Blood Pressure Mean 100 Blood Pressure Mean [Right Arm] Pulse Oximetry 95 Oxygen Delivery Method Sepsis Recent Fever Within 48 Hours Sepsis New/Unexplained Change in Mental Status Sepsis Action Taken by Nursing 04/12/25 17:51 04/12/25 17:52 04/12/25 18:01 Temperature Temperature Source Pulse Rate 96 H 136 H 130 H Pulse Rate [Apical] Respiratory Rate 20 20 Respiratory Effort / Characteristics Respiratory Depth Respiratory Pattern Blood Pressure 125/91 125/91 129/97 Blood Pressure [Right Arm] Blood Pressure Mean 107 109 Blood Pressure Mean [Right Arm] Pulse Oximetry 93 91 Oxygen Delivery Method Sepsis Recent Fever Within 48 Hours Sepsis New/Unexplained Change in Mental Status Sepsis Action Taken by Nursing 04/12/25 18:45 04/12/25 19:00 04/12/25 21:00 Temperature Temperature Source Pulse Rate 133 H Pulse Rate [Apical] 117 H 87 Respiratory Rate 22 24 Respiratory Effort / Characteristics Non-Labored Spontaneous Non-Labored Spontaneous Respiratory Depth Normal Normal Respiratory Pattern Regular Regular Blood Pressure 130/99 Blood Pressure [Right Arm] 148/100 H 141/98 H Blood Pressure Mean Blood Pressure Mean [Right Arm] 116 112 Pulse Oximetry 94 93 Oxygen Delivery Method Room Air Room Air Sepsis Recent Fever Within 48 Hours Sepsis New/Unexplained Change in Mental Status Sepsis Action Taken by Nursing 04/12/25 21:21 04/12/25 21:38 Temperature Temperature Source Pulse Rate 87 93 H Pulse Rate [Apical] Respiratory Rate Respiratory Effort / Characteristics Respiratory Depth Respiratory Pattern Blood Pressure 142/87 H Blood Pressure [Right Arm] Blood Pressure Mean Blood Pressure Mean [Right Arm] Pulse Oximetry Oxygen Delivery Method Sepsis Recent Fever Within 48 Hours Sepsis New/Unexplained Change in Mental Status Sepsis Action Taken by Shelter Medications Current Medication List: was personally reviewed by me Additional Comments: Has Eliquis and metoprolol with her, she states she does not take the Eliquis however Laboratory Data Attestation: I reviewed the patient's lab results. Negative D-dimer, flat troponins 04/12/25 17:02 04/12/25 17:02 Lab Results 04/12/25 04/12/25 04/12/25 Range/Units 17:02 18:57 20:10 WBC 8.14 (4.8-10.8) K/ul RBC 3.97 L (4.20-5.40) M/uL Hgb 12.7 (12.0-16.0) g/dL Hct 37.7 (37.0-47.0) % MCV 95.0 (80.0-100.0) fL MCH 32.0 (25.0-34.0) pg MCHC 33.7 (32.0-36.0) g/dL RDW Std Deviation 46.6 H (36.4-46.3) fL RDW Coeff of Rui 13.2 (11.5-14.5) % Plt Count 316 (130-400) K/uL MPV 9.2 L (9.4-12.4) fL Immature Gran % (Auto) 0.2 % Neut % (Auto) 63.2 % Lymph % (Auto) 25.8 % [place] % (Auto) 9.8 % Eos % (Auto) 0.5 % Baso % (Auto) 0.5 % Neut # (Auto) 5.14 (1.40-6.50) K/uL Lymph # (Auto) 2.10 (1.20-3.40) K/uL [place] # (Auto) 0.80 H (0.11-0.59) K/uL Eos # (Auto) 0.04 (0.00-0.50) K/uL Baso # (Auto) 0.04 (0.00-0.20) K/uL Immature Gran # (Auto) 0.02 (0.01-0.20) K/uL D-Dimer 400 (0-500) ug/L FEU Sodium 140 (136-145) mmol/L Potassium 3.2 L (3.5-5.1) mmol/L Chloride 100 (98-107) mmol/L Carbon Dioxide 29 (21-32) mmol/L Anion Gap 11 (3-11) BUN 20 (6-23) mg/dl Creatinine 0.94 (0.6-1.2) mg/dl Est Cr Clr Drug Dosing 44.3 ml/min eGFR 60.21 BUN/Creatinine Ratio 21.3 H (10-20) Glucose 132 H (70-99(Fasting)) mg/dl Calcium 9.7 (8.6-10.3) mg/dl Magnesium 2.1 (1.7-2.4) mg/dl Total Bilirubin 0.5 (0.2-1.0) mg/dl AST 26 (13-39) U/L ALT 25 (7-52) U/L Alkaline Phosphatase 75 (34-104) U/L Troponin I High Sens 26.2 H 26.8 H (0-14) pg/ml B-Natriuretic Peptide 748 H (0-100) pg/ml Total Protein 8.0 (6.0-8.3) gm/dl Albumin 4.5 (3.4-5.0) gm/dl Globulin 3.5 (2.5-4.0) gm/dl Albumin/Globulin Ratio 1.3 (0.9-2) TSH 2.157 (0.300-4.500) uIu/ml Urine Color Yellow Urine Appearance Clear (Clear) Urine pH 6.5 (4.5-7.5) Ur Specific [place] 1.006 (1.000-1.030) Urine Protein Negative (Negative) Urine Glucose (UA) Negative (Negative) Urine Ketones Negative (Negative) Urine Blood 1+ H (Negative) Urine Nitrite Negative (Negative) Urine Bilirubin Negative (Negative) Urine Urobilinogen Negative (Negative) Ur Leukocyte Esterase Trace H (Negative) Urine WBC (Auto) 0-5 (0-5) /hpf Urine RBC (Auto) 6-10 H (0-2) /hpf U Hyaline Cast (Auto) 0-2 (0-2) /lpf U Epithel Cells (Auto) 0-2 (0-2) /hpf Urine Bacteria (Auto) None Seen (None Seen) Urine Comment Administered Medications Discontinued Medications Diltiazem HCl (Diltiazem Hcl 5 Mg/Ml 5 Ml Vial) 15 mg IV NOW STA Stop: 04/12/25 19:58 Last Admin: 04/12/25 20:08 Dose: 15 mg Documented By: ROBYN Co-signed By: patricia Sodium Chloride (Nss) 1,000 mls @ 999 mls/hr IV .Q1H1M STA Stop: 04/12/25 18:08 Last Infusion: 04/12/25 18:43 Dose: Infused Documented By: Admin: 04/12/25 17:11 Dose: 999 mls/hr Documented By: ARNIE Metoprolol Tartrate (Metoprolol Tartrate 1 Mg/Ml Vial) 5 mg IV NOW STA Stop: 04/12/25 17:09 Last Admin: 04/12/25 17:15 Dose: 5 mg Documented By: ARNIE Metoprolol Tartrate (Metoprolol Tartrate 1 Mg/Ml Vial) 5 mg IV NOW STA Stop: 04/12/25 18:34 Last Admin: 04/12/25 18:45 Dose: 5 mg Documented By: GT Potassium Chloride (Potassium Chloride Crtab 20 Meq Tabcr) 40 meq PO NOW STA Stop: 04/12/25 17:40 Last Admin: 04/12/25 17:56 Dose: 40 meq Documented By: ARNIE Imaging Data Attestation: I personally reviewed and interpreted this imaging study as follows: My Impression: Unremarkable chest x-ray per my independent interpretation Radiologist's Impression: Chest X-Ray 04/12/25 17:09 EXAM: Radiograph of the Chest 1 View INDICATION: Dysrhythmia TECHNIQUE: Frontal view of the chest. COMPARISON: 02/11/2025 FINDINGS: Lungs and pleural spaces: Stable chronic interstitial scarring and hyperinflation. No infiltrate, pulmonary edema or pleural effusion. No pneumothorax. Heart: Stable enlarged shadow. Mediastinum: Normal contour. Bones/joints: No fracture, erosion or dislocation. Soft tissues: No abnormality noted. No radiopaque foreign body noted. Upper abdomen: No abnormality noted. IMPRESSION: Stable chronic changes. No acute disease. ACT 112: N/A Electronically signed by Mary Tolentino 04-12-2025 6:43 PM ECG Data Attestation: I personally reviewed and interpreted this ECG as follows: Indication: + chest pain Rate (beats per minute): 142 Rhythm: atrial fibrillation ECG [place]: + Left axis deviation ECG ST segments: + Normal ST segments Discharge Plan Visit Data Chief Complaint: Tachycardia Stated Complaint: HEART ISSUES TACHYCARDIA ED Provider: Sin Parra Discharge Problem: Atrial fibrillation with rapid ventricular response Patient Disposition: Admitted As Inpatient Condition: Serious Discharge Instructions Interventions: ED Discharge Assessment Last Done: 04/12/25 23:08
[2025-04-12] MEDS: METOPROLOL TARTRATE 1 MG/ML VIAL IV STA ×2 (17:15→18:45)
[2025-04-12 17:18] LABS: Hematocrit (blood only) 37.7 % (37.0-47.0); Hemoglobin 12.7 g/dL (12.0-16.0); Immature Granulocytes # (auto) 0.02 K/uL (0.01-0.20); Immature Granulocytes % (auto) 0.2 %; Mean Corpuscular Hemoglobin 32.0 pg (25.0-34.0); Mean Corpuscular Volume 95.0 fL (80.0-100.0); Platelet Count 316 K/uL (130-400); RDW Standard Deviation 46.6 fL (36.4-46.3); Red Blood Count 3.97 M/uL (4.20-5.40); White Blood Count 8.14 K/ul (4.8-10.8)
[2025-04-12 17:37] LABS: Alanine Aminotransferase 25.0 U/L (7-52); Albumin Globulin Ratio 1.3 (0.9-2); Albumin Level 4.5 gm/dl (3.4-5.0); Alkaline Phosphatase 75.0 U/L (34-104); Anion Gap 11.0 (3-11); Bilirubin,Total 0.5 mg/dl (0.2-1.0); Blood Urea Nitrogen 20.0 mg/dl (6-23); Calcium 9.7 mg/dl (8.6-10.3); Carbon Dioxide 29.0 mmol/L (21-32); Chloride 100.0 mmol/L (98-107); Creatinine Clr Calc Pharmacy 44.3 ml/min; Globulin 3.5 gm/dl (2.5-4.0); Glucose 132.0 mg/dl (70-99(Fasting)); Magnesium 2.1 mg/dl (1.7-2.4); Potassium 3.2 mmol/L (3.5-5.1); Sodium 140.0 mmol/L (136-145); Total Protein 8.0 gm/dl (6.0-8.3)
[2025-04-12 17:53] LABS: Thyroid Stimulating Hormone 2.157 uIu/ml (0.300-4.500)
[2025-04-12] MEDS: POTASSIUM CHLORIDE CRTAB 20 MEQ TABCR PO STA (17:56)
--- NOTE | 2025-04-12 18:43 | XRay Report ---
EXAM: Radiograph of the Chest 1 View INDICATION: Dysrhythmia TECHNIQUE: Frontal view of the chest. COMPARISON: 02/11/2025 FINDINGS: Lungs and pleural spaces: Stable chronic interstitial scarring and hyperinflation. No infiltrate, pulmonary edema or pleural effusion. No pneumothorax. Heart: Stable enlarged shadow. Mediastinum: Normal contour. Bones/joints: No fracture, erosion or dislocation. Soft tissues: No abnormality noted. No radiopaque foreign body noted. Upper abdomen: No abnormality noted. IMPRESSION: Stable chronic changes. No acute disease. ACT 112: N/A Electronically signed by Mary Tolentino 04-12-2025 6:43 PM
[2025-04-12 20:36] LABS: Appearance Urine Clear (Clear); Bacteria Urine Automated None Seen (None Seen); Cast Urine Automated 0-2 /lpf (0-2); Epithelial Cell Urine Auto 0-2 /hpf (0-2); Glucose Urine UA Negative (Negative); WBC Urine Automated 0-5 /hpf (0-5)
--- NOTE | 2025-04-12 22:14 | History & Physical Report ---
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 with A-fib RVR and confusion: #A-fib RVR: EKG on arrival A-fib RVR, rate 134 bpm Labs negative for anemia, TSH WNL Mild hypokalemia - repleted S/P IV metoprolol x2 doses in ED with negligible effect - then given IV diltiazem 15mg which significantly improved rate control - Continue IV diltiazem gtt [id number] VASc score of 5 - restart eliquis 5mg BID for stroke prevention Last TTE 2 months ago: EF WNL, mildly enlarged left atrium, increased RV systolic pressure - Given recency of last echo, will defer repeat study at this time #Elevated troponin: EKG without overt ischemic changes, patient without chest pain Trop 26.2, repeat 26.8 - likely d/t demand ischemia secondary to RVR Check AM troponin for completeness #Hypokalemia: K+3.2 - repleted Check AM BMP #HFpEF // #HTN: BNP elevated at 748 CXR without pulmonary edema or pleural effusion Patient appears relatively euvolemic on exam, low suspicion for acute exacerbation Continue Losartan, Imdur, Lasix #CAD // #HLD: Continue aspirin, statin, zetia Dispo: Admit PCU VTE ppx: Eliquis Diet: HH Code status: Patient expressed uncertainty about advanced directive wishes, requested more time to think about it. Entered as full code - revisit discussion in AM History of Present Illness Primary Care Provider: Wilbert Swanson 84 y/o female with PMHx that includes CAD, HFpEF, aortic stenosis, hypertension, and GERD presents from her rose grader's office with A-fib RVR and confusion. Patient does not think she has ever been diagnosed with A-fib in the past. However, per cardiology note, patient was recently started on metoprolol and E liquis by PCP, possibly for A-fib. 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 Chest tightness nearly resolved at present. Denies recent illness, denies fevers/chills. Denies EtOH use. Denies orthopnea, LE edema. Denies presyncope/syncope. Allergies Allergy/AdvReac Type Severity Reaction Status Date / Time No Known Allergies Allergy Verified 04/12/25 16:12 Home Medications Medication Instructions Recorded Confirmed Type aspirin 81 mg chewable tablet 81 mg PO DAILY #30 tabs 09/21/21 04/12/25 Rx lorazepam 0.5 mg tablet 0.5 mg PO .COMPLEX PRN Anxiety 10/13/21 04/12/25 History losartan 100 mg tablet 100 mg PO DAILY 03/19/24 04/12/25 History nitroglycerin 0.4 mg sublingual 0.4 mg sublingual Q5M PRN chest 03/19/24 04/12/25 Rx tablet pain #20 tabs ezetimibe 10 mg tablet 10 mg PO DAILY #90 tabs 04/29/24 04/12/25 Rx furosemide 40 mg tablet 40 mg PO BID #180 tabs 04/29/24 04/12/25 Rx rosuvastatin 40 mg tablet 40 mg PO HS #90 tabs 04/29/24 04/12/25 Rx isosorbide mononitrate 30 mg 30 mg PO DAILY #90 tabs 05/01/24 04/12/25 Rx tablet,extended release 24 hr Past Med/Surg History Problem List (Updated 04/12/25 @ 23:14 by Sin Parra MD) Atrial fibrillation with rapid ventricular response (Acute) Acute pain of right wrist (Acute) Elevated troponin (Acute) Syncope and collapse (Acute) Dyslipidemia Status post right knee replacement Encounter for pre-operative examination Arthritis of right knee PVCs (premature ventricular contractions) Dyspnea on exertion Hypertension Aortic stenosis Echo 09/2022: Mild aortic stenosis (ANNABEL 1.9-2.0cm2, MG 15.3mmhg) PAC (premature atrial contraction) GERD (gastroesophageal reflux disease) Atrial tachycardia CAD (coronary artery disease) Follows with [facility] Chronic heart failure with preserved ejection fraction Medical History Pulmonary hypertension Obesity Hyperlipidemia Anxiety Surgical History Hx of cardiac catheterization Hx of section History of cholecystectomy Family History Other Family history non-contributory Social History Smoking Status: Never smoker Second Hand Exposure: No; Do You Dip or Chew Tobacco: No; Hx Alcohol Use: No Hx Substance Use: No Preferred Language: Korean Communication Ability: Effective 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 Beliefs That Will Affect Care: None marital status: Current Living Situation: Family and Significant Other Other Information That Helps Us Care for You: No Feels Safe at Home: Yes Safety Concerns: Feels Safe At This Time Assistive Devices: Denture - Upper, Denture - Lower and Hearing Aid - Bilateral Review of Systems Review of Systems: as per HPI Physical Exam Physical Exam: Constitutional: no acute distress HEENT: NCAT, no conjunctival injection CV: +tachycardic with irregularly irregular rhythm, extremities well-perfused, no LE edema Resp: no increased work of breathing, lungs clear to auscultation. No wheezes, rales, rhonchi appreciated. GI: nondistended MSK: no gross deformities Skin: warm, dry, no rash appreciated Neuro: alert, oriented to self, place, and time but has difficulty recalling autobiographical information as it pertains to her past medical history, o/w no focal neuro deficits appreciated. Results & Data Results & Data Vital Signs (Past 12 Hours) Vital Signs Temp Pulse Pulse Resp BP BP Pulse Ox 04/12/25 21:38 93 H 142/87 H 04/12/25 21:21 87 04/12/25 21:00 87 24 141/98 H 93 04/12/25 19:00 117 H 22 148/100 H 94 04/12/25 18:45 133 H 130/99 04/12/25 18:01 130 H 20 129/97 91 04/12/25 17:52 136 H 20 125/91 93 04/12/25 17:51 96 H 125/91 04/12/25 17:24 127 H 20 141/94 H 95 04/12/25 17:15 135 H 150/113 H 04/12/25 17:08 134 H 04/12/25 17:01 117 H 20 150/113 H 95 04/12/25 16:59 96 04/12/25 16:53 36.3 C L 147 H 18 160/118 H 95 O2 Del Method 04/12/25 21:38 04/12/25 21:21 04/12/25 21:00 Room Air 04/12/25 19:00 Room Air 04/12/25 18:45 04/12/25 18:01 04/12/25 17:52 04/12/25 17:51 04/12/25 17:24 04/12/25 17:15 04/12/25 17:08 04/12/25 17:01 Room Air 04/12/25 16:59 Room Air 04/12/25 16:53 Room Air Resident Activity Tracking Resident Involvement: Resident Care Provided Care Provided: Adult Hospital Medicine
[2025-04-12] MEDS ORDERED: POLYETHYLENE (MIRALAX) 17 GM PACK PO PRN (23:08)
[2025-04-12] MEDS ORDERED: STAT IV Infusion **Titration per Protocol STA (23:08)
[2025-04-12] MEDS ORDERED: ACETAMINOPHEN 325 MG TAB PO PRN (23:08)
[2025-04-12] MEDS ORDERED: MELATONIN 3 MG TAB PO PRN (23:08)
[2025-04-12] MEDS ORDERED: LORazepam 0.5 MG TAB PO PRN (23:08)
[2025-04-12] MEDS ORDERED: ONDANSETRON INJ 2 MG/ML 2 ML VIAL IV PRN (23:08)
[2025-04-12] MEDS: APIXABAN 5 MG TABLET PO SCH (23:30)
[2025-04-12] MEDS: POTASSIUM CHLORIDE / WTR 10 MEQ/100 ML PLCT IV SCH (23:40)
[2025-04-13 05:16] LABS: Hematocrit (blood only) 32.2 % (37.0-47.0); Hemoglobin 11.0 g/dL (12.0-16.0); Mean Corpuscular Hemoglobin 32.6 pg (25.0-34.0); Mean Corpuscular Volume 95.5 fL (80.0-100.0); Platelet Count 273 K/uL (130-400); RDW Standard Deviation 46.9 fL (36.4-46.3); Red Blood Count 3.37 M/uL (4.20-5.40); White Blood Count 7.29 K/ul (4.8-10.8)
[2025-04-13 05:34] LABS: Anion Gap 6.0 (3-11); Blood Urea Nitrogen 16.0 mg/dl (6-23); Calcium 9.0 mg/dl (8.6-10.3); Carbon Dioxide 29.0 mmol/L (21-32); Chloride 106.0 mmol/L (98-107); Creatinine Clr Calc Pharmacy 50.1 ml/min; Glucose 122.0 mg/dl (70-99(Fasting)); Magnesium 2.0 mg/dl (1.7-2.4); Potassium 3.6 mmol/L (3.5-5.1); Sodium 141.0 mmol/L (136-145)
[2025-04-13] MEDS: ASPIRIN 81 MG ECTAB PO SCH (08:41)
[2025-04-13] MEDS: FUROSEMIDE 40 MG TAB PO SCH (08:42)
[2025-04-13] MEDS: EZETIMIBE 10 MG TAB PO SCH (08:42)
[2025-04-13] MEDS: LOSARTAN POTASSIUM 50 MG TAB PO SCH (08:42)
[2025-04-13] MEDS: ISOSORBIDE MONO EXTENDED REL 30 MG TABCR PO SCH (08:42)
[2025-04-13 11:06] VITALS: RESP 18
[2025-04-13 15:11] VITALS: BP 100/56; PULSE 101; TEMP 98.4; O2SAT 95
--- NOTE | 2025-04-13 15:13 | Electrocardiogram Report ---
Test Reason : Blood Pressure : */* mmHG Vent. Rate : 132 BPM Atrial Rate : * BPM P-R Int : * ms QRS Dur : 84 ms QT Int : 322 ms P-R-T Axes : * 40 4 degrees QTcB Int : 477 ms Atrial fibrillation with rapid ventricular response with premature ventricular or aberrantly conducte d complexes Abnormal ECG When compared with ECG of 11-Feb-2025 15:51, Atrial fibrillation has replaced Sinus rhythm Vent. rate has increased by 69 bpm Right bundle branch block is no longer Present Confirmed by Vinny Epperson ([id number]) on 04/13/2025 3:12:46 PM Referred By: Wilbert Swanson Confirmed By: Vinny Epperson
--- NOTE | 2025-04-13 15:15 | Electrocardiogram Report ---
Test Reason : Blood Pressure : */* mmHG Vent. Rate : 142 BPM Atrial Rate : * BPM P-R Int : * ms QRS Dur : 110 ms QT Int : 328 ms P-R-T Axes : * -43 -20 degrees QTcB Int : 504 ms Atrial fibrillation with rapid ventricular response Left axis deviation Incomplete right bundle branch block Nonspecific ST and T wave abnormality Abnormal ECG When compared with ECG of 12-Apr-2025 16:11, (unconfirmed) No significant change was found Confirmed by Vinny Epperson ([id number]) on 04/13/2025 3:15:40 PM Referred By: Wilbert Swanson Confirmed By: Vinny Epperson
--- NOTE | 2025-04-13 15:22 | Electrocardiogram Report ---
Test Reason : Blood Pressure : */* mmHG Vent. Rate : 86 BPM Atrial Rate : * BPM P-R Int : * ms QRS Dur : 118 ms QT Int : 412 ms P-R-T Axes : * -18 -28 degrees QTcB Int : 493 ms Atrial fibrillation Right bundle branch block Cannot rule out Anterior infarct , age undetermined Abnormal ECG When compared with ECG of 12-Apr-2025 17:00, (unconfirmed) Vent. rate has decreased by [address] no longer depressed in Anterior leads Confirmed by Vinny Epperson ([id number]) on 04/13/2025 3:21:46 PM Referred By: Wilbert Swanson Confirmed By: Vinny Epperson
--- NOTE | 2025-04-13 16:57 | Discharge Summary ---
Discharge Summary Date of Service April 13, 2025 Principal Dx & Hospital Course #1 = Principal Diagnosis (1) Atrial fibrillation with rapid ventricular response: See below. (2) Hypertension: See below. (3) Aortic stenosis: See below. (4) CAD (coronary artery disease): See below. (5) Chronic heart failure with preserved ejection fraction: See below. (6) Anxiety: See below. Plan A. Paroxysmal AFIB with RVR. Etiology of paroxysmal AFIB with RVR remains unclear with U/A (04/12/2025, 8:10pm) not concerning/suspicious for acute UTI as a possible etiology of paroxysmal AFIB with RVR. cf., U/A (04/12/2025, 8:10pm): clear yellow, LE trace, nitrite-, WBC 0-5, RBC 6-10, epithelial cells 0-2, bacteria 0. In addition, portable CXR (04/12/2025, 5:09pm) did not reveal any infiltrate/consolidation to suggest acute infectious pneumonia as a possible etiology of paroxysmal AFIB with RVR. In addition, portable CXR (04/12/2025, 5:09pm) did not reveal any pulmonary vascular congestion to suggest [id number] diastolic CHF exacerbation as a possible etiology of paroxysmal AFIB with RVR, despite patient's elevated BNP 748 pg/mL (04/12/2025, 5:02pm), which is higher than patient's historical baseline BNP range of 290 pg/mL (03/19/2024, 9:16am) to 159 pg/mL (10/12/2024, 8:23am). In addition, screening TSH was normal at 2.157 uIU/mL (04/12/2025, 5:02pm). In addition, troponin-I levels were nominally elevated: cf., troponin-I #1 26.2 pg/mL (04/12/2025, 5:02pm). cf., troponin-I #2 26.8 pg/mL (04/12/2025, 6:57pm). cf., troponin-I #3 25.4 pg/mL (04/13/2025, 4:41am). cf., EKG (04/12/2025, 4:11pm): AFIB @ 134, QTC 525, no acute ST depressions/elevations (by my review). cf., EKG (04/12/2025, 5:00pm): AFIB @ 142, QTC 504, no acute ST depressions/elevations (by my review). cf., EKG (04/10/2025, 5:21pm): AFIB @ 132, QTC 477, no acute ST depressions/elevations (by my review). Of note, patient does not take any rate-controlling medications (e.g., metoprolol, carvedilol, diltiazem) or rhythm-controlling medications (e.g., digoxin, amiodarone, flecainide) at her home. Patient was subsequently started on metoprolol 5mg IV x 2 doses (04/12/2025, 5:15pm, 6:45pm), diltiazem 15mg IV x 1 dose (, 8:08pm), and diltiazem infusion @ 5mg/hr (04/12/2025, 11:40pm), then 10mg/hr (04/13/2025, 12:41am), then 15mg/hr (04/13/2025, 1:23am), then 10mg/hr (04/13/2025, 9:18am), then 5mg/hr (04/13/2025, 2:30pm), then off (04/13/2025, 3:03pm), as patient received diltiazem 60mg PO q6 (first dose on 04/13/2025, 1:45pm). Patient's paroxysmal AFIB with RVR subsequently RESOLVED with patient now in chronic/persistent AFIB, now on diltiazem 60mg PO q6 (first dose administered on 04/13/2025, 1:45pm). Given that patient has no more complaints of uneasiness or palpitations in the chest as her heart rate remains consistently less than 100 beats/minute while on diltiazem 60mg PO q6, patient was discharged back to her home today, 04/13/2025, on diltiazem 60mg PO q6, as per [employer] [place] [employer] communication with on-call CARDS Dr. Vinny Epperson and patient's own CARDS Dr. Андрей Hernandez. In addition, patient reports that she will follow up with her own CARDS Dr. Андрей duarte within 5-7 days of hospital discharge as her own CARDS Dr. Андрей Hernandez is out of the office until next week. Patient feels well and wants to go back to her home today, 04/13/2025; to this end, patient called her to pick her up today, 04/13/2025, 5:30pm. In the interim, patient's pharmacy, [facility] received an electronic prescription for the following medication on 04/13/2025, prior to hospital discharge back to her home today, 04/13/2025: 1. Diltiazem 60mg PO q6, #120 tablets, no refills. Of note, patient has a CHADS2-VASC score = 6 points (e.g., 2 points for age > 74 years, 1 point for female sex, 1 point for HTN, 1 point for CHF, and 1 point for PVD/PAD), and hence, patient stands to benefit from having received apixaban 5mg PO bid on 04/13/2025 (04/12/2025, 11:30pm; 04/13/2025, 8:47am) while in [facility]. Patient will continue apixaban 5mg PO bid on hospital discharge back to her home today, 04/13/2025. To this end, patient's pharmacy, [facility] received an electronic prescription for the following medication on 04/13/2025, prior to hospital discharge back to her home today, 04/13/2025: 2. Apixaban 5mg PO bid, #60 tablets, no refills. B. Chronic HTN. Modestly controlled with admission BP 154/96 (04/12/2025, 4:13pm) on home-scheduled lasix 40mg PO bid, isosorbide mononitrate 30mg PO daily, and losartan 100mg PO daily. Well-controlled with discharge BP 100/56 (04/13/2025, 5:08pm) on hospital-started diltiazem 60mg PO q6 (first dose administered on 04/13/2025, 1:45pm) AND while continuing her home-scheduled lasix 40mg PO bid, isosorbide mononitrate 30mg PO daily, and losartan 100mg PO daily. Subsequently, patient was discharged back to her home today, 04/13/2025, on hospital-started diltiazem 60mg PO q6 (first dose administered on 04/13/2025, 1:45pm) AND while continuing her home-scheduled lasix 40mg PO bid, isosorbide mononitrate 30mg PO daily, and losartan 100mg PO daily. C. Chronic diastolic CHF with preserved LVEF 65-70% and grade I LV diastolic dysfunction (as noted on 11/03/2024, 10:09am TTE, CARDS Dr. Андрей Hernandez). NOT acute exacerbation of chronic diastolic CHF as patient reports no weight gain, paroxysmal nocturnal dyspnea, orthopnea, or platypnea while in [facility] from observation date 04/12/2025 to discharge date 04/13/2025. Hence, patient received medical management of her chronic HTN (as noted in the above bullet), and which is a very common cause for chronic diastolic CHF. D. CAD. Patient received secondary prophylaxis against CAD utilizing her home-scheduled ASA 81mg PO daily, ezetimibe 10mg PO daily, and rosuvastatin 40mg PO qhs while in [facility] from observation date 04/12/2025 to discharge date 04/13/2025. Patient will continue this same regimen on hospital discharge back to her home today, 04/13/2025. E. Mild aortic stenosis with AV velocity ratio calculated at 0.45 (as noted on 11/03/2024, 10:09am TTE, CARDS Dr. Андрей Hernandez). Asymptomatic with no complaints of angina, syncope, or CHF / [id number] diastolic CHF with preserved LVEF exacerbation while in [facility] from observation date 04/12/2025 to discharge date 04/13/2025. Observe. F. Anxiety disorder. Asymptomatic on home-scheduled on home lorazepam 0.5mg PO daily prn anxiety while in [facility] from observation date 04/12/2025 to discharge date 04/13/2025. Patient will continue this same regimen on hospital discharge back to her home today, 04/13/2025. Admission HPI Per Admitting Provider 84 y/o female with PMH of FULL CODE @ home with , obesity with BMI 32.0 (height 157.5 cm; weight 79.4 kg), GERD, CAD, chronic diastolic CHF with preserved LVEF 65-70% and grade I LV diastolic dysfunction (as noted on 11/03/2024, 10:09am TTE, CARDS Dr. Андрей Hernandez), mild aortic stenosis with AV velocity ratio calculated at 0.45 (as noted on 11/03/2024, 10:09am TTE, CARDS Dr. 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 Patient does not think she has ever been diagnosed with A-fib in the past. However, per cardiology note, patient was recently started on metoprolol and Eliquis by PCP, possibly for A-fib. Patient states that she developed chest tightness 1 day LOG FEEDER, denies overt chest pain or SOB. Chest tightness nearly resolved at present. Denies recent illness, denies fevers/chills. Denies EtOH use. Denies orthopnea, LE edema. Denies presyncope/syncope. Discharge Exam Constitutional General: comfortable, coherent, cooperative. Wide awake and alert. Not confused, lethargic, or obtunded. Patient speaks in complete, fluent, and articulate sentences without pause, interruption, cough, or wheeze. HEENT: normocephalic, atraumatic. EOMI. PERRL. No nystagmus, gaze paresis, anisocoria, miosis, mydriasis, hyphema, scleral injection, conjunct ivitis, or pterygium. No otorrhea. No rhinorrhea. No pharyngeal erythema, edema, or discharge. Neck: supple, no stridor, bruit, goiter, JVD. Jugular venous pressure is estimated to be 3 cm above the sternal angle of [place], which in turn, is 5 cm above the level of the right atrium; hence, jugular venous pressure is estimated to be 8 cm H2O, which is normal. Lymph: no anterior/posterior cervical, supraclavicular, infraclavicular, axillary, epitrochlear, or inguinal lymphadenopathy. Chest: symmetric rise and falls with respirations. Non-tender to palpation. Lungs: clear to auscultation and percussion; no audible expiratory wheeze, egophony, pectoriloquy, increase in tactile fremitus, or flatness/dullness to percussion at the bases. Heart: Regular rate less than 100 beats/minute; irregularly irregular rhythm consistent with chronic/persistent AFIB, now on diltiazem 60mg PO q6 (first dose administered on 04/13/2025, 1:45pm); S1 and S2 noted. No S3 or S4 summation gallop. No tripartite friction rub. Grade II/ early systolic murmur @ LLSB without radiation to the carotids, axilla, or back, and which remains invariant in regards to the respiratory cycle. Abdomen: soft, non-tender, non-distended. No rebound, guarding, Crespo's sign, or organomegaly. Bowel sounds auscultated in all 4 quadrants. Extremity: no clubbing, cyanosis, or edema. 2+ pedal pulses bilaterally. Skin: no decubitus ulcer, exanthem, or enanthem. Neuro: alert and oriented in regards to person, place, time, and situation. DTR+. 5/5 motor strength in all 4 extremities, both proximally and distally. Psychiatric: no flat affect. Smiles appropriately. Discharge Plan Discharge Items Patient Disposition: Home - Self-Care Reason For Visit: AFIB RVR Discharge Diagnosis: Recurrent, paroxysmal AFIB with RVR, now rate-controlled with HR < 100 bpm by utilizing diltiazem 60mg PO q6, but still in AFIB. Condition on Discharge: Fair Activity: Resume your previous activity Lifting: Gradually increase as tolerated Bathing: No limitations Sexual Activity: When tolerated Exercise/Sports: Gradually increase as tolerated Driving/Machine Use: No limitations Weightbearing: Full weightbearing Non-emergency contact: Primary Care Provider and [employer] Call non-emergency contact if: you have any medication questions Follow-up/Referrals: Андрей Hernandez MD [Physician] - 04/19/25 11:30 am (Cardiology follow up: with Tami LOYA) Wilbert Swanson PA-C [Primary Care Provider] - Diet: Heart Healthy Addtl Attending Provider Instructions: See your PCP Mr. Wilbert Swanson PA-C, within 5-7 days of hospital discharge for routine well care, follow up visit. See your CARDS Dr. Андрей Hernandez, within 5-7 days of hospital discharge, to optimize management of paroxysmal AFIB with RVR, now rate-controlled with HR < 100 bpm by utilizing diltiazem 60mg PO q6, but still in AFIB. Pending Studies at Discharge: No Stand-Alone Forms: My [facility], Smoking Cessation Medications and DC Order Prescriptions: New diltiazem HCl 60 mg Tablet 60 mg PO Q6 Qty: 12 0RF Eliquis 5 mg Tablet 5 mg PO BID Qty: 60 0RF Continued aspirin 81 mg tablet,chewable 81 mg PO DAILY Qty: 30 2RF Hold Instructions: Hold for 1 month. You can resume your once a day dose of aspirin after you have completed 30 days of aspirin twice daily as ordered by Dr. Theodore. lorazepam 0.5 mg tablet 0.5 mg PO .COMPLEX PRN (Reason: Anxiety) Rx Instructions: 0.5 mg PO 1-2 tablets daily prn losartan 100 mg tablet 100 mg PO DAILY nitroglycerin 0.4 mg tablet, sublingual 0.4 mg sublingual Q5M PRN (Reason: chest pain) Qty: 20 3RF Rx Instructions: do not exceed 3 doses per episode furosemide 40 mg tablet 40 mg PO BID Qty: 180 3RF Rx Instructions: Take 40 mg twice daily. You can space the doses out by 6 hours. rosuvastatin 40 mg tablet 40 mg PO HS Qty: 90 3RF Rx Instructions: Take 1 tablet in the evening for cholesterol ezetimibe 10 mg tablet 10 mg PO DAILY Qty: 90 3RF isosorbide mononitrate 30 mg tablet extended release 24 hr 30 mg PO DAILY Qty: 90 3RF Discharge Orders: Discharge Order (Routine); Ordered 04/13/25 Ordered By: Asad Rowan Discharge Order- CHF (Routine); Ordered 04/13/25 Ordered By: Asad Rowan Admission Data Admit Date/Time: 04/12/25 22:12 Attending Provider: Asad Rowan Admit Provider: Noel Garcia Primary Care Provider: Wilbert Swanson Other Providers: José Antonio Roldan Hospital Stay Data Consultations 04/12/25 20:39 ED Decision to Admit Stat Pending Results Patient Have Any Pending Studies at Discharge: No Discharge Instructions Given to Patient (Per Discharging Provider) See your PCP Mr. Wilbert Swanson PA-C, within 5-7 days of hospital discharge for routine well care, follow up visit. See your CARDS Dr. Андрей Hernandez, within 5-7 days of hospital discharge, to optimize management of paroxysmal AFIB with RVR, now rate-controlled with HR < 100 bpm by utilizing diltiazem 60mg PO q6, but still in AFIB. Total Time Total Time Spent Total Time Spent (In Minutes): 35 minutes. Of this time period, 19 minutes were spent in coordinating patient's discharge. Coding Level of Care Code 69684 INP/OBS DISCH >30 MIN Diagnoses Atrial fibrillation with rapid ventricular response I48.91 Hypertension I10 Aortic stenosis I35.0 CAD (coronary artery disease) I25.10 Chronic heart failure with preserved ejection fraction I50.32 Anxiety F41.9
[2025-04-13] MEDS ORDERED: ROSUVASTATIN CALCIUM 20 MG TAB PO SCH (21:00)
== END 2025-04-13 17:50 | disposition home or self-care (01) | DRG 309 ==
LOC: ED 16:48 → EDINP 22:12 → SUATTDRO 22:12 → 2S 23:08